=== PATIENT | female | born 1995 | race Caucasian/White ===

== ENCOUNTER → 2016-11-08 | Outpatient (CLI) | payer OTHER ==
--- NOTE | 2016-11-08 12:57 | REP ---
LEFT WRIST, FOUR VIEWS: HISTORY: Sprain. There is no acute fracture or dislocation. The joint spaces are normal in appearance. IMPRESSION: There is on acute fracture or dislocation. Signed by Colby García MD 11/08/2016 01:29 P
--- NOTE | 2016-11-08 13:01 | REP ---
LEFT ELBOW, FOUR VIEWS: HISTORY: Sprain. There is no acute fracture or dislocation. The joint space is normal in appearance. IMPRESSION: There is no acute fracture or dislocation. Signed by Colby García MD 11/08/2016 01:29 P
== END ==
LOC: M WUC 09:08
PROVIDERS: ATTEND Physician Assistant
DX: S53.402A Unspecified sprain of left elbow, initial encounter (principal); S63.512A Sprain of carpal joint of left wrist, initial encounter; X58.XXXA Exposure to other specified factors, initial encounter; Y92.89 Other specified places as the place of occurrence of the external cause; Y93.89 Activity, other specified; Y99.8 Other external cause status

== ENCOUNTER → 2017-01-16 | Outpatient (CLI) | payer OTHER, MEDICAID ==
--- NOTE | 2017-01-16 14:08 | REP ---
OB ULTRASOUND: Real-time sonographic evaluation of the gravid uterus is performed. There is a single living intrauterine gestation. The estimated gestational age is 24 weeks 3 days, EDC 05/05/2017. Today's measurements indicate appropriate growth. Biometry and Growth: BPD 59 mm = 24 weeks 1 day, 44th percentile HC 219 mm = 24 weeks 0 days, 36th percentile AC 214 mm = 25 weeks 6 days, 81st percentile FL 44 mm = 24 weeks 3 days, 51st percentile HC/AC ratio 1.02 within normal range. Estimated weight 770 grams 64th percentile. SEEN/GROSSLY UNREMARKABLE Lateral ventricles Yes Posterior fossa Yes Upper lip Yes Four-chamber heart Yes LVOT Yes RVOT Yes Stomach Yes Cord insertion Yes Three vessel cord No Kidneys Yes Bladder Yes Spine No Cervical length: Closed and measures 2.7 cm in length. heart rate: 163 beats per minute. position: Breech. Placenta: Anterior and fundal and grade 0 with no previa or abruptions. Amniotic fluid: Within normal limits. Signed by German Tsang MD 01/16/2017 04:57 P
[2017-01-16 14:09] LABS: BASO % 0.1 % (0.0-1.0); EOS # 0.1 K/mm3 (0.0-0.50); EOS % 1.1 % (0.0-3.0); LARGE UNSTAINED CELL # 0.1 K/mm3 (0.0-0.4); LARGE UNSTAINED CELL % 1.1 % (0.0-4.0); LYMPH # 1.1 K/mm3 (1.5-6.5); LYMPH % 14.4 % (24.0-44.0); MEAN CORPUSCULAR HEMOGLOBIN 32.6 pg (27.0-33.0); MEAN CORPUSCULAR HGB CONC 34.1 g/dl (32.0-36.5); MEAN CORPUSCULAR VOLUME 95.6 fl (80.0-96.0); MONO # 0.5 K/mm3 (0.0-0.8); MONO % 7.4 % (0.0-5.0); NEUTROPHILS # 5.4 K/mm3 (1.8-7.7); NEUTROPHILS % 75.9 % (36.0-66.0); PLATELET COUNT, AUTOMATED 226 k/mm3 (150-450); RED CELL DISTRIBUTION WIDTH 13.2 % (11.5-14.5); WHITE BLOOD COUNT 7.1 K/mm3 (4.0-10.0)
[2017-01-16 14:25] LABS: HBsAg Prenatal NEGATIVE (NEGATIVE)
== END ==
LOC: M RAD 12:11
PROVIDERS: ATTEND Advanced Practice Midwife
DX: Z34.82 Encounter for supervision of other normal pregnancy, second trimester (principal)

== ENCOUNTER → 2017-01-31 | Outpatient (CLI) | payer OTHER, MEDICAID ==
--- NOTE | 2017-01-31 15:14 | REP ---
Clinical: Anatomical re-evaluation. Comparison: 01/16/2017 . Findings: Examination demonstrates a single live intrauterine in breech presentation. motion is identified by technologist. Placenta is noted posteriorly and grade I without evidence for placenta previa or abruption. Amniotic fluid volume is normal. Cervix measures 3.6 cm in length and appears closed. No evidence for nuchal cord. Gestational age by LMP 26 weeks 4 days with JERRI 05/05/2017 . Gestational age by current measurements 26 weeks 1 day with JERRI 05/08/2017 . FHR equals 141 beats per minute. Estimated weight 962 grams ( 43rd percentile). Anatomical assessment demonstrates normal structures including cranium, choroid plexus, cavum, cerebellum/posterior fossa, facial features, lungs, four-chamber heart/ventricular outflow tracts, diaphragm, stomach, cord insertion/three-vessel cord, kidneys/bladder, and extremities. Evaluation of the lower lumbar/sacral spine is again limited due to continued breech presentation. Impression: Single live intrauterine in breech presentation demonstrating appropriate interval growth. With the exception of the lumbosacral spine, anatomical assessment is complete and normal. Signed by Rigo Olivia MD 01/31/2017 03:06 P
== END ==
LOC: M RAD 14:16
PROVIDERS: ATTEND Advanced Practice Midwife
DX: Z34.82 Encounter for supervision of other normal pregnancy, second trimester (principal)

== ENCOUNTER → 2017-02-08 | Outpatient (CLI) | payer OTHER, MEDICAID ==
[2017-02-08 16:45] LABS: BASO % 0.1 % (0.0-1.0); EOS % 0.8 % (0.0-3.0); LARGE UNSTAINED CELL # 0.1 K/mm3 (0.0-0.4); LARGE UNSTAINED CELL % 0.9 % (0.0-4.0); LYMPH # 0.9 K/mm3 (1.5-6.5); LYMPH % 14.8 % (24.0-44.0); MEAN CORPUSCULAR HEMOGLOBIN 32.5 pg (27.0-33.0); MEAN CORPUSCULAR VOLUME 95.9 fl (80.0-96.0); MONO # 0.4 K/mm3 (0.0-0.8); NEUTROPHILS # 4.5 K/mm3 (1.8-7.7); NEUTROPHILS % 76.4 % (36.0-66.0); PLATELET COUNT, AUTOMATED 208 k/mm3 (150-450); RED CELL DISTRIBUTION WIDTH 13.2 % (11.5-14.5); WHITE BLOOD COUNT 5.9 K/mm3 (4.0-10.0)
[2017-02-08 17:05] LABS: ADD MORPHOLOGY? NO
== END ==
LOC: M LAB 14:05
PROVIDERS: ATTEND Advanced Practice Midwife
DX: Z34.82 Encounter for supervision of other normal pregnancy, second trimester (principal)

== ENCOUNTER → 2017-04-04 | Outpatient (REF) | payer OTHER, MEDICARE | LOC: M LAB REF 16:56 | PROVIDERS: ATTEND Specialist | DX: Z34.83 Encounter for supervision of other normal pregnancy, third trimester (principal) ==

== ENCOUNTER 2017-05-06 03:49 | Inpatient (IN) | payer OTHER, MEDICARE ==
[~2017-05-06] VITALS: Ht 175.3 cm; Wt 76.0 kg
[2017-05-06] VITALS (24 sets, daily range): BP systolic 106–135; BP diastolic 55–91
[2017-05-06] MEDS ORDERED: PRENTAB9 PO (04:07)
[2017-05-06] MEDS ORDERED: FERR325T3 PO (04:07)
[2017-05-06] MEDS ORDERED: PENICILLIN G POTASSIUM IV 5 MU in D5W MINI-BAG PLUS 100 ML IV STA (04:40)
[2017-05-06] MEDS ORDERED: LACTATED RINGER'S 1000 ML IV STA (04:40)
[2017-05-06 04:54] LABS: MEAN CORPUSCULAR HEMOGLOBIN 32.2 pg (27.0-33.0); MEAN CORPUSCULAR HGB CONC 34.6 g/dl (32.0-36.5); MEAN CORPUSCULAR VOLUME 93.1 fl (80.0-96.0); PLATELET COUNT, AUTOMATED 189 10^3/uL (150-450); RED CELL DISTRIBUTION WIDTH 12.9 % (11.5-14.5); WHITE BLOOD COUNT 7.9 10^3/uL (4.0-10.0)
--- NOTE | 2017-05-06 05:00 | HPEPDOC ---
[facility] Medical History & Physical Date of Admission May 06, 2017 Other Provider Jason Attending Physician: Cheryl Rizzo CNM History and Physical HISTORY & PHYSICAL EXAMINATION DATE OF ADMISSION: 05/06/2017 21-year-old, 1, para 0, at 40-1/7 weeks gestation by mid trimester sonogram on 01/16/2017 for an estimated date of delivery of 05/05/2017 presents with complaints of contractions starting around of 10 PM. Upon evaluation, she is 7 cm, 100 % effaced, 0 station. She reports active movement. Reports bloody show .Denies loss of fluid . Sono at 24 weeks 3 days confirmed her due date. Prepregnancy weight was 130. Total weight gain 35 pounds. She has been normotensive through the . Last office visit was at 39 weeks 4 days on 05/02/2017. has been uncomplicated with with the exception of late entry to care. Anatomy scan within normal limits. OB HISTORY: 1 ALLERGIES: None. MEDICAL/SURGICAL HISTORY: Dental and elbow surgery FAMILY HISTORY: Cancer, hypertension and thyroid disease. SOCIAL HISTORY: Single. Father of the baby is present and supportive. Denies tobacco, alcohol or drugs. No history of sexually transmitted infections OBJECTIVE: Labs are B+, antibody negative. Initial hemoglobin and hematocrit 10.1 and 29.6 with platelets of 226. Rubella immune. VDRL, hepatitis B, hepatitis C, HIV, gonorrhea, chlamydia all negative. Genetic screening was not done due to late entry to care. 1 hour GCT 116. Group B strep is positive. Sensitivities were done. VITAL SIGNS: Stable. She is in moderate distress, breathing with contractions. Abdomen is soft, gravid, nontender, longitudinal lie, vertex by Fer. Contractions 2-4 minutes apart, 60 seconds, moderate to palpation. heart 150, moderate variability with accelerations, category 1 tracing. Sterile vaginal exam: 7 cm, 100 % effaced, 0 station, intact membranes and cephalic. ASSESSMENT: 21-year-old, 1, at 40 weeks 1 days gestation, in active labor, category 1 tracing. PLAN: Admit per consultation Dr. Gomez, who is aware of patient's status. Group B strep prophylaxis ordered. She is undecided about an epidural .Anticipate normal spontaneous vaginal . Home Medications Scheduled Ferrous Sulfate (Ferrous Sulfate) 325 Mg Tab, 325 MG PO DAILY Multivitamins/ ( 27-0.8 mg) 1 Tab Tab, 1 TAB PO DAILY Allergies Coded Allergies: No Known Allergies (Unverified , 05/06/17) Cheryl Rizzo CNM May 06, 2017 05:00
[2017-05-06] MEDS ORDERED: FENTANYL 2MCG/ML ROPIVACAINE 0.2% IN 0.9% NACL 200ML IVBAG As Ordered ONE (05:23)
[2017-05-06] MEDS ORDERED: OXYTOCIN 30 UNITS IN 0.9% NaCl 500ML IV BAG (J2590) As Ordered ONE (06:25)
[2017-05-06] MEDS ORDERED: REFRIGERATOR IV KEYS XX PRN (07:00)
[2017-05-06] MEDS ORDERED: diphenhydrAMINE INJ 50MG/ML VIAL (J1200) IV PRN (07:00)
[2017-05-06] MEDS ORDERED: NALOXONE INJ 0.4 MG/1 ML VIAL (J2310) IV PRN (07:00)
[2017-05-06] MEDS ORDERED: FENTANYL/ROPIVACAINE/NACL BAG 200 ML EPIDURAL SCH (07:00)
[2017-05-06] MEDS ORDERED: EPIDURAL/PCA KEYS XX PRN (07:00)
[2017-05-06] MEDS ORDERED: ePHEDrine SULFATE 25 MG/5 ML(5MG/ML) SYRINGE IV PRN (07:00)
[2017-05-06] MEDS ORDERED: ONDANSETRON 4MG/2ML VIAL (J2405) IV PRN (07:00)
[2017-05-06] MEDS ORDERED: EPIDURAL COMMENT XX SCH (07:00)
[2017-05-06] MEDS ORDERED: ALBUTEROL 90 MCG/ACT 8GM HFA INHALER INH PRN (08:00)
[2017-05-06] MEDS ORDERED: OXYTOCIN DRIP 30 UNITS in APPROPRIATE DILUENT 1 EA IV SCH (08:33)
--- NOTE | 2017-05-06 08:44 | DNPDOC ---
[facility] Delivery Note Delivery Note DATE OF DELIVERY: 05/06/2017 PREDELIVERY DIAGNOSIS: 40-1/7 weeks' gestation and labor. POST DELIVERY DIAGNOSIS: Delivered. PROCEDURE: Spontaneous vaginal delivery. ELECTRIC REPAIR SUPERVISOR: Cheryl Rizzo ANESTHESIA: Epidural. ESTIMATED BLOOD LOSS: 100 mL. FINDINGS: 8 pound 4 ounce, 3750 g male , Score 9/9, no nuchal cord. DELIVERY SUMMARY: Patient is a 21-year-old 1 now para 1 -0 -0-1 who was admitted to labor and delivery for active labor on 05/06/2017. She utilized an epidural for labor coping. Fully dilated at 0700, artificial rupture of membranes at that time for moderate amount clear fluid. Pitocin augmentation of second stage for maternal fatigue was performed. Viable male delivered SALOME compound with left posterior arm at 0814. Spontaneous respirations. Transitioned on maternal abdomen. Cord doubly Clamped and cut by father of the baby under my direction once pulsations ceased. Placenta delivered Vargas intact with a three-vessel cord at 0819. Fundus firmed with massage and IV Pitocin bolus. Estimated blood loss 100 mL., Cervix, vagina and perineum were inspected, found to have bilateral labial abrasions and a small posterior vaginal abrasion. Interrupted suture of 3-0 Vicryl Rapide provided good hemostasis. Infant weight 3750 g, 8 lbs. 4 oz. Sponge, sharp and instrument count were correct at the close of the procedure Cheryl Rizzo CNM May 06, 2017 08:44
[2017-05-06] MEDS ORDERED: MOM 30ML SUSPENSION UDC PO PRN (08:45)
[2017-05-06] MEDS ORDERED: DOCUSATE SODIUM 100 MG CAP PO PRN (08:45)
[2017-05-06] MEDS ORDERED: RHOGAM 300 MCG (1500 IU) INJ (J2790) IM SCH (08:45)
[2017-05-06] MEDS ORDERED: MEASLES,MUMPS,RUBELLA VACCINE INJ (MMR-II) (90707) SC SCH (08:45)
[2017-05-06] MEDS ORDERED: METHYLERGONOVINE MALEATE 0.2 MG TAB PO PRN (08:45)
[2017-05-06] MEDS ORDERED: DIBUCAINE 1% OINTMENT 30GM TOP PRN (08:45)
[2017-05-06] MEDS ORDERED: ANUSOL HC CREAM 30GM TOP PRN (08:45)
[2017-05-06] MEDS ORDERED: PENICILLIN G POTASSIUM IV 2.5 MU in APPROPRIATE DILUENT 1 EA IV SCH (09:00)
[2017-05-06] MEDS: IBUPROFEN 800 MG TAB PO PRN ×2 (11:20→20:56)
[2017-05-06] MEDS: FERROUS SULFATE 325MG TAB PO SCH (11:20)
[2017-05-06] MEDS: PRENATAL VITAMINS CHEWABLE TABLET PO SCH (11:20)
[2017-05-06] MEDS: guaiFENesin DM LIQ 10ML UD PO PRN ×2 (12:47→23:38)
[2017-05-06] MEDS: ACETAMINOPHEN 500 MG TAB PO PRN (16:06)
[2017-05-07 06:21] VITALS: BP 115/56
[2017-05-07] MEDS: IBUPROFEN 800 MG TAB PO PRN ×2 (06:52→16:01)
[2017-05-07] MEDS: FERROUS SULFATE 325MG TAB PO SCH (08:37)
[2017-05-07] MEDS: PRENATAL VITAMINS CHEWABLE TABLET PO SCH (08:37)
[2017-05-07 18:00] VITALS: BP 117/75
[2017-05-07] MEDS: guaiFENesin DM LIQ 10ML UD PO PRN ×2 (18:31→23:29)
[2017-05-08] MEDS: ACETAMINOPHEN 500 MG TAB PO PRN (02:29)
[2017-05-08 06:00] VITALS: BP 110/65
[2017-05-08] MEDS: PRENATAL VITAMINS CHEWABLE TABLET PO SCH (09:00)
[2017-05-08] MEDS: FERROUS SULFATE 325MG TAB PO SCH (09:00)
[2017-05-08] MEDS: IBUPROFEN 800 MG TAB PO PRN (10:43)
[2017-05-08] MEDS ORDERED: ACET50TA PO (10:56)
[2017-05-08] MEDS ORDERED: IBUP-1114 PO (10:57)
== END 2017-05-08 12:50 | disposition home or self-care (01) | DRG 775 ==
LOC: M LDO 03:49 → M LDI 04:43 → M OBS 11:00
PROVIDERS: ADMIT Advanced Practice Midwife; ATTEND Advanced Practice Midwife
PROC: 10E0XZZ Delivery of Products of Conception, External Approach (ICD-10-PCS; principal; 2017-05-06)
DX: O48.0 Post-term pregnancy (principal); Z37.0 Single live birth; Z3A.40 40 weeks gestation of pregnancy; O32.6XX0 Maternal care for compound presentation, not applicable or unspecified; O09.30 Supervision of pregnancy with insufficient antenatal care, unspecified trimester

== ENCOUNTER → 2017-09-19 | Outpatient (CLI) | payer MEDICAID, OTHER, MEDICARE ==
[2017-09-19 13:00] LABS: TOTAL 25(OH) VITAMIN D 11.1 NG/ML (30.0-100.0)
[2017-09-20 12:30] LABS: HIV 1&2 SCREEN CENTAUR NEGATIVE (NEGATIVE)
== END ==
LOC: M LAB 11:35
DX: Z13.29 Encounter for screening for other suspected endocrine disorder (principal); Z11.3 Encounter for screening for infections with a predominantly sexual mode of transmission
CPT/HCPCS: 84443

== ENCOUNTER → 2017-11-19 | Outpatient (CLI) | payer OTHER ==
[2017-11-20 00:16] LABS: TOTAL 25(OH) VITAMIN D 48.8 NG/ML (30.0-100.0)
== END ==
LOC: M LAB 16:20
DX: E55.9 Vitamin D deficiency, unspecified (principal)
CPT/HCPCS: 82306

== ENCOUNTER → 2018-05-05 | Outpatient (REF) | payer OTHER ==
[2018-05-14 00:06] LABS: HPV HYBRID CAPTURE II Negative (Negative)
== END ==
LOC: M LAB REF 12:59
DX: Z01.419 Encounter for gynecological examination (general) (routine) without abnormal findings (principal); Z12.4 Encounter for screening for malignant neoplasm of cervix

== ENCOUNTER → 2018-08-02 | Outpatient (REF) | payer OTHER ==
[~2018-08-02] MED LIST: FERR325T3 PO; IBUP-1114 PO; MAPA500T2 PO; PRENTAB9 PO
== END ==
LOC: M LAB REF 11:35
PROVIDERS: ATTEND Physician Assistant
DX: J02.9 Acute pharyngitis, unspecified (principal); J06.9 Acute upper respiratory infection, unspecified

== ENCOUNTER → 2019-02-16 | Outpatient (CLI) | payer OTHER, BC ==
[2019-02-16 08:10] LABS: HEMATOCRIT 33.9 % (36.0-47.0); HEMOGLOBIN 11.7 g/dl (12.0-15.5); MEAN CORPUSCULAR HEMOGLOBIN 29.9 pg (27.0-33.0); MEAN CORPUSCULAR HGB CONC 34.5 g/dl (32.0-36.5); MEAN CORPUSCULAR VOLUME 86.7 fl (80.0-96.0); PLATELET COUNT, AUTOMATED 272 10^3/uL (150-450); RED BLOOD COUNT 3.91 10^6/uL (4.00-5.40); WHITE BLOOD COUNT 6.5 10^3/uL (4.0-10.0)
== END ==
LOC: M LAB 07:26
PROVIDERS: ATTEND Specialist
DX: N93.8 Other specified abnormal uterine and vaginal bleeding (principal)

== ENCOUNTER → 2019-06-30 | Outpatient (REF) | payer OTHER | LOC: M SFHCWAGY 19:56 | PROVIDERS: ATTEND Specialist | DX: Z12.4 Encounter for screening for malignant neoplasm of cervix (principal); R10.2 Pelvic and perineal pain ==

== ENCOUNTER → 2019-08-04 | Outpatient (REF) | payer OTHER ==
[2019-08-04 11:56] LABS: HEMATOCRIT 36.4 % (36.0-47.0); HEMOGLOBIN 12.2 g/dl (12.0-15.5); MEAN CORPUSCULAR HGB CONC 33.5 g/dl (32.0-36.5); MEAN CORPUSCULAR VOLUME 89.4 fl (80.0-96.0); PLATELET COUNT, AUTOMATED 284 10^3/uL (150-450); RED BLOOD COUNT 4.07 10^6/uL (4.00-5.40); WHITE BLOOD COUNT 7.8 10^3/uL (4.0-10.0)
[2019-08-04 13:44] LABS: CHLAMYDIA DNA AMPLIFICATION NEGATIVE (NEGATIVE); GC DNA AMPLIFICATION NEGATIVE (NEGATIVE)
[2019-08-05 11:08] LABS: HEPATITIS B SURFACE ANTIGEN NEGATIVE (NEGATIVE); HEPATITIS C VIRUS ABY INDEX < 0.0 INDEX (<0.8); HIV 1&2 SCREEN CENTAUR NEGATIVE (NEGATIVE); RUBELLA IgG QUALITATIVE IMMUNE (IMMUNE)
== END ==
LOC: M PLALAB 10:17
PROVIDERS: ATTEND Obstetrics & Gynecology
DX: Z34.91 Encounter for supervision of normal pregnancy, unspecified, first trimester (principal)

== ENCOUNTER → 2019-10-22 | Outpatient (CLI) | payer OTHER, BC ==
--- NOTE | 2019-10-22 19:37 | REP ---
Clinical: Anatomical evaluation. Comparison: None . Findings: Examination demonstrates a single live intrauterine in variable presentation. motion is identified by technologist. Placenta is noted posterior and grade I without evidence for placenta previa or abruption. Amniotic fluid volume is normal. Cervix measures 3.3 cm in length and appears closed. No evidence for nuchal cord. Gestational age by LMP 20 weeks 6-day with JERRI 03/04/2020 . Gestational age by current measurements 19 weeks 4 days with JERRI 03/13/2020 . FHR equals 155 beats per minute. Estimated weight 318 grams ( 15th percentile). Anatomical assessment demonstrates normal structures including cranium, choroid plexus, cavum, cerebellum/posterior fossa, facial features, lungs, diaphragm, stomach, cord insertion/three-vessel cord, kidneys/bladder, spine, and extremities. Impression: Single live intrauterine in variable presentation demonstrating appropriate estimated weight and growth. Limited evaluation of the heart/ventricular outflow tracts noted. Remainder of the anatomical assessment is complete and normal.
== END ==
LOC: M WHC 10:58
PROVIDERS: ATTEND Advanced Practice Midwife
DX: Z36.89 Encounter for other specified antenatal screening (principal); Z3A.20 20 weeks gestation of pregnancy

== ENCOUNTER → 2019-11-17 | Outpatient (CLI) | payer OTHER, BC ==
--- NOTE | 2019-11-18 03:31 | REP ---
OB ULTRASOUND: Real-time sonographic evaluation of gravid uterus performed. There is a single living intrauterine gestation. Estimated gestational age is 24 weeks 4 days, EDC 03/04/2020. Today's measurements indicate appropriate growth. BPD 58 mm = 23 weeks 6 days, 32nd percentile HC 211 mm = 23 weeks 1 day, 6th percentile AC 199 mm = 24 weeks 4 days, 50th percentile Femur length 42 mm = 23 weeks 4 days, 26th percentile HC/AC ratio 1.06, within normal range of 1.02 to 1.21. Estimated weight 657 grams, 29th percentile. Cervical length: Cervix is closed and measures 3.8 cm in length. heart rate: 152 beats per minute. SEEN/GROSSLY UNREMARKABLE Lateral ventricles No Posterior fossa No Upper lip No Four-chamber heart Yes LVOT Yes RVOT Yes Stomach Yes Cord insertion Yes Three vessel cord Yes Kidneys Yes Bladder Yes Spine No position: Vertex. Placenta: Posterior and grade 1 with no previa or abruption. Amniotic fluid: Within normal limits.
== END ==
LOC: M WHC 14:19
PROVIDERS: ATTEND Advanced Practice Midwife
DX: Z34.82 Encounter for supervision of other normal pregnancy, second trimester (principal); Z36.2 Encounter for other antenatal screening follow-up; Z3A.24 24 weeks gestation of pregnancy

== ENCOUNTER → 2019-12-29 | Outpatient (CLI) | payer OTHER, BC ==
[~2019-12-29] MED LIST changes: +ACET-683 PO; +IBUP80TA PO; +LEVOTAB10 PO
== END ==
LOC: M RAD 07:30
PROVIDERS: ATTEND Advanced Practice Midwife
DX: O99.89 Other specified diseases and conditions complicating pregnancy, childbirth and the puerperium (principal); O26.899 Other specified pregnancy related conditions, unspecified trimester; R20.0 Anesthesia of skin; M51.36 Other intervertebral disc degeneration, lumbar region; M51.37 Other intervertebral disc degeneration, lumbosacral region; M51.45 Schmorl's nodes, thoracolumbar region; M51.26 Other intervertebral disc displacement, lumbar region; M51.27 Other intervertebral disc displacement, lumbosacral region

== ENCOUNTER → 2020-02-02 | Outpatient (REF) | payer OTHER | LOC: M LAB REF 19:10 | PROVIDERS: ATTEND Specialist | DX: Z34.83 Encounter for supervision of other normal pregnancy, third trimester (principal); Z3A.00 Weeks of gestation of pregnancy not specified ==

== ENCOUNTER → 2020-02-16 | Outpatient (CLI) | payer OTHER ==
[2020-02-16 17:23] LABS: HEMATOCRIT 36.9 % (36.0-47.0); HEMOGLOBIN 11.8 g/dl (12.0-15.5); MEAN CORPUSCULAR HEMOGLOBIN 30.3 pg (27.0-33.0); MEAN CORPUSCULAR VOLUME 94.6 fl (80.0-96.0); PLATELET COUNT, AUTOMATED 207 10^3/uL (150-450); WHITE BLOOD COUNT 7.9 10^3/uL (4.0-10.0)
[2020-02-16 17:55] LABS: ALBUMIN 2.6 GM/DL (3.2-5.2); BILIRUBIN,DIRECT 0.1 MG/DL (0.0-0.2); BILIRUBIN,TOTAL 0.8 MG/DL (0.2-1.0); TOTAL PROTEIN 6.4 GM/DL (6.4-8.2); URIC ACID 3.6 MG/DL (2.6-6.0)
== END ==
LOC: M PLALAB 15:09
PROVIDERS: ATTEND Advanced Practice Midwife
DX: O99.89 Other specified diseases and conditions complicating pregnancy, childbirth and the puerperium (principal); Z3A.37 37 weeks gestation of pregnancy; R51 Headache

== ENCOUNTER 2020-03-04 07:43 | Inpatient (IN) | payer OTHER, BC ==
[~2020-03-04] VITALS: Ht 172.7 cm; Wt 82.5 kg
[2020-03-04] VITALS (30 sets, daily range): BP systolic 95–149; BP diastolic 52–89
[~2020-03-04 07:43] MED LIST changes: -ACET-683 PO; -IBUP80TA PO; -LEVOTAB10 PO
[2020-03-04] MEDS ORDERED: miSOPROStol 50 MCG 1/2 TAB (S0191) PO ONE (10:30)
[2020-03-04] MEDS ORDERED: LEVOTAB10 PO (10:55)
[2020-03-04 11:03] LABS: MEAN CORPUSCULAR HEMOGLOBIN 30.5 pg (27.0-33.0); MEAN CORPUSCULAR HGB CONC 33.3 g/dl (32.0-36.5); MEAN CORPUSCULAR VOLUME 91.4 fl (80.0-96.0); PLATELET COUNT, AUTOMATED 213 10^3/uL (150-450); RED BLOOD COUNT 3.61 10^6/uL (4.00-5.40)
[2020-03-04] MEDS ORDERED: LR 1,000 ML IV SCH (15:10)
[2020-03-04] MEDS ORDERED: OXYTOCIN DRIP 30 UNITS in IV 1 EA IV SCH ×2 (15:15→20:51)
[2020-03-04] MEDS ORDERED: FENTANYL 2MCG/ML ROPIVACAINE 0.2% IN 0.9% NACL 100ML IVBAG As Ordered ONE (19:10)
[2020-03-04] MEDS ORDERED: EPIDURAL COMMENT XX SCH (19:30)
[2020-03-04] MEDS ORDERED: EPIDURAL/PCA KEYS XX PRN (19:30)
[2020-03-04] MEDS ORDERED: diphenhydrAMINE 50MG/ML VIAL (J1200) IV PRN (19:30)
[2020-03-04] MEDS ORDERED: LACTATED RINGER'S 1000 ML IV PRN (19:30)
[2020-03-04] MEDS ORDERED: ONDANSETRON 4MG/2ML VIAL IV PRN (19:30)
[2020-03-04] MEDS ORDERED: ePHEDrine SULFATE 25 MG/5 ML(5MG/ML) SYRINGE IV PRN (19:30)
[2020-03-04] MEDS ORDERED: FENTANYL/ROPIVACAINE/NACL BAG 100 ML EPIDURAL SCH (19:30)
[2020-03-04] MEDS ORDERED: REFRIGERATOR IV KEYS XX PRN (19:30)
[2020-03-04] MEDS ORDERED: NALOXONE INJ 0.4MG/1ML VIAL (J2310 PER 1MG) IV PRN (19:30)
[2020-03-04] MEDS ORDERED: DIBUCAINE 1% OINTMENT 30GM TOP PRN (21:00)
[2020-03-04] MEDS ORDERED: METHYLERGONOVINE MALEATE 0.2 MG TAB PO PRN (21:00)
[2020-03-04] MEDS ORDERED: DOCUSATE SODIUM 100 MG CAP PO PRN (21:00)
[2020-03-04] MEDS ORDERED: RHOGAM 300 MCG (1500 IU) INJ (J2790) IM SCH (21:00)
[2020-03-04] MEDS ORDERED: MEASLES,MUMPS,RUBELLA VACCINE INJ (MMR-II) (90707) SC SCH (21:00)
[2020-03-04] MEDS ORDERED: ACETAMINOPHEN TAB 650MG DOSE (2X325MG) PO PRN (21:00)
[2020-03-04] MEDS ORDERED: IBUPROFEN 600MG TAB PO PRN (21:00)
--- NOTE | 2020-03-04 21:08 | DNPDOC ---
[facility] Delivery Note Delivery Note DATE OF DELIVERY: 03/04/2020 PREDELIVERY DIAGNOSIS: 40-0/7 weeks' gestation and labor. POST DELIVERY DIAGNOSIS: Delivered. PROCEDURE: Spontaneous vaginal delivery. CERTIFIED NURSE-PROFESSOR OF RADIOLOGY: Pippa Bell CNM ANESTHESIA: Epidural. ESTIMATED BLOOD LOSS: 300 mL. FINDINGS: 7 pound 9 ounce, 3440 gram male infant, Score 9/9, no nuchal cord. DELIVERY SUMMARY: Patient is a 24-year-old 2 now para 2-0-0-2 who was admitted to labor and delivery for IOL at 40 0/7 weeks. She received an epidural to cope with her labor. Progressed to complete dilation at 2014 and pushed to an at 2025 of a live male infant in OA position with restitution to LOT with a compound right hand. No nuchal cord was noted. Shoulders delivered spontaneously and the corpus immediately followed. was placed on the maternal abdomen, crying and active, mouth and nose bulb suctioned. Cord was clamped x2 and cut by the father of the baby under my direction. Placenta delivered spontaneously and intact by Vargas mechanism with a 3 vessel cord at 2035. Uterine hemostasis was achieved with rapid infusion IV pitocin and uterine fundal massage. Perineal and vaginal inspection revealed no lacerations. EBL 300 mL. weighed 3440g, 7 lbs 9 oz and had apgars of 9/9. The patient is bottle feeding and has named her baby Yogesh. At the close of delivery all lap counts and instrument counts were correct and verified. JORDYN BELL CNM Mar 04, 2020 21:08
[2020-03-05] MEDS: IBUPROFEN 800 MG TAB PO PRN ×2 (00:25→16:11)
[2020-03-05] MEDS: ACETAMINOPHEN 500 MG TAB PO PRN ×2 (05:39→11:13)
[2020-03-05 06:00] VITALS: BP 111/66
--- NOTE | 2020-03-05 06:57 | IPNPDOC ---
Progress Note Date of Service: Mar 05, 2020 Day#: 1 Progress Note SUBJECT: Pt denies complaints. Doing well day #1. She has been ambu lating, voiding without difficulty and tolerating regular diet. She is bottle feeding. OBJECTIVE: VITAL SIGNS: T 97.4F P 77 RR 17 BP 111/66 Alert and oriented x3. Breasts soft and non-tender, nipples intact. Fundus firm at U-2. Small lochia rubra. Perineum intact, no edema. ASSESSMENT: at term, PPD #1 PLAN: Continue routine post care. JORDYN BELL CNM Mar 05, 2020 06:57
[2020-03-05] MEDS: PRENATAL VITAMINS CHEWABLE TABLET PO SCH (10:18)
[2020-03-05 18:00] VITALS: BP 109/68
[2020-03-06] MEDS: IBUPROFEN 800 MG TAB PO PRN ×2 (00:31→09:37)
[2020-03-06] MEDS: ACETAMINOPHEN 500 MG TAB PO PRN (05:39)
[2020-03-06 06:04] VITALS: BP_SYST 119; BP_SYST 151; BP_SYST 170; BP_DIAS 73; BP_DIAS 81
[2020-03-06] MEDS ORDERED: ACET-683 PO (08:28)
[2020-03-06] MEDS ORDERED: IBUP80TA PO (08:28)
[2020-03-06] MEDS: PRENATAL VITAMINS CHEWABLE TABLET PO SCH (09:37)
== END 2020-03-06 11:00 | disposition home or self-care (01) | DRG 807 ==
LOC: M LDO 07:43 → M LDI 10:28 → M OBS 23:04
PROVIDERS: ADMIT Advanced Practice Midwife; ATTEND Advanced Practice Midwife
PROC: 10E0XZZ Delivery of Products of Conception, External Approach (ICD-10-PCS; principal; 2020-03-04)
PROC: 3E0DXGC Introduction of Other Therapeutic Substance into Mouth and Pharynx, External Approach (ICD-10-PCS; 2020-03-04)
DX: O48.0 Post-term pregnancy (principal); Z37.0 Single live birth; Z3A.40 40 weeks gestation of pregnancy

== ENCOUNTER → 2020-06-24 | Outpatient (REF) | payer OTHER ==
[~2020-06-24] MED LIST changes: +ACET-683 PO; +IBUP80TA PO; +LEVOTAB10 PO
[2020-06-24 13:41] LABS: HEMATOCRIT 37.8 % (36.0-47.0); HEMOGLOBIN 12.4 g/dl (12.0-15.5); MEAN CORPUSCULAR HEMOGLOBIN 29.2 pg (27.0-33.0); MEAN CORPUSCULAR HGB CONC 32.8 g/dl (32.0-36.5); MEAN CORPUSCULAR VOLUME 88.9 fl (80.0-96.0); PLATELET COUNT, AUTOMATED 291 10^3/uL (150-450); RED BLOOD COUNT 4.25 10^6/uL (4.00-5.40); WHITE BLOOD COUNT 5.9 10^3/uL (4.0-10.0)
== END ==
LOC: M PLALAB 10:42
PROVIDERS: ATTEND Advanced Practice Midwife
DX: R63.5 Abnormal weight gain (principal); F32.9 Major depressive disorder, single episode, unspecified; E01.0 Iodine-deficiency related diffuse (endemic) goiter; Z12.4 Encounter for screening for malignant neoplasm of cervix
CPT/HCPCS: 36415; 84443; 85027; G0123

== ENCOUNTER → 2020-11-09 | Outpatient (CLI) | payer OTHER, BC | LOC: M LABSMTC 09:37 | PROVIDERS: ATTEND Student in an Organized Health Care Education/Training Program | DX: Z20.828 Contact with and (suspected) exposure to other viral communicable diseases (principal); Z11.59 Encounter for screening for other viral diseases ==

== ENCOUNTER → 2021-03-29 | Outpatient (REF) | payer OTHER | LOC: M WUC 19:48 | PROVIDERS: ATTEND Physician Assistant | DX: J06.9 Acute upper respiratory infection, unspecified (principal); Z20.828 Contact with and (suspected) exposure to other viral communicable diseases ==

== ENCOUNTER 2021-03-30 17:05 | Emergency (ER) | payer OTHER, BC ==
[~2021-03-30] VITALS: Ht 172.7 cm; Wt 74.9 kg
[~2021-03-30 17:05] MED LIST changes: -KETO10TAB PO
[2021-03-31 03:02] VITALS: BP 116/72
[2021-03-31] MEDS ORDERED: NS 1,000 ML IV ONE (05:15)
[2021-03-31] MEDS ORDERED: KETOROLAC 30 MG/ML 1ML VIAL IV ONE (05:15)
[2021-03-31 05:54] LABS: BASO % 0.2 % (0.0-1.0); EOS % 0.2 % (0.0-3.0); HEMATOCRIT 38.6 % (36.0-47.0); HEMOGLOBIN 12.6 g/dl (12.0-15.5); LYMPH # 1.5 10^3/uL (1.5-5.0); LYMPH % 34.6 % (24.0-44.0); MEAN CORPUSCULAR HEMOGLOBIN 29.4 pg (27.0-33.0); MEAN CORPUSCULAR HGB CONC 32.6 g/dl (32.0-36.5); MONO # 0.6 10^3/uL (0.0-0.8); MONO % 13.5 % (2.0-8.0); NEUTROPHILS # 2.2 10^3/uL (1.5-8.5); NEUTROPHILS % 51.3 % (36.0-66.0); PLATELET COUNT, AUTOMATED 176 10^3/uL (150-450); RED BLOOD COUNT 4.29 10^6/uL (4.00-5.40); WHITE BLOOD COUNT 4.4 10^3/uL (4.0-10.0)
[2021-03-31 06:24] LABS: ALBUMIN 3.8 GM/DL (3.2-5.2); ALT/SGPT 21 U/L (12-78); BILIRUBIN,TOTAL 0.9 MG/DL (0.2-1.0); BLOOD UREA NITROGEN 10 MG/DL (7-18); CALCIUM LEVEL 8.9 MG/DL (8.5-10.1); CARBON DIOXIDE LEVEL 25 MEQ/L (21-32); CHLORIDE LEVEL 104 MEQ/L (98-107); CK-MB VALUE MASS < 1.0 NG/ML (<3.6); CPK CREATINE PHOSPHOKINASE 56 U/L (26-192); CREATININE FOR GFR 0.81 MG/DL (0.55-1.30); GLOMERULAR FILTRATION RATE > 60.0 (>60); GLUCOSE, FASTING 87 MG/DL (70-100); MAGNESIUM LEVEL 2.5 MG/DL (1.8-2.4); MB/CK RELATIVE INDEX 1.79 (< OR =4); POTASSIUM SERUM 3.9 MEQ/L (3.5-5.1); SODIUM LEVEL 139 MEQ/L (136-145); TOTAL PROTEIN 7.6 GM/DL (6.4-8.2); TROPONIN I < 0.02 NG/ML (< 0.10)
--- NOTE | 2021-03-31 06:33 | REPVR ---
PROCEDURE INFORMATION: Exam: CT Abdomen And Pelvis Without Contrast Exam date and time: 03/31/2021 5:15 AM Age: 25 years old Clinical indication: Abdominal pain; Flank; Right; Additional info: Pyelonephritis vs appendicitis TECHNIQUE: Imaging protocol: Computed tomography of the abdomen and pelvis without contrast. Radiation optimization: All CT scans at this facility use at least one of these dose optimization techniques: automated exposure control; mA and/or kV adjustment per patient size (includes targeted exams where dose is matched to clinical indication); or iterative reconstruction. COMPARISON: US PELVIC NON-OB COMPLETE 03/30/2021 2:17 PM FINDINGS: Lungs: The visualized portions of the lung bases are normal. Liver: The unenhanced liver appears unremarkable. Gallbladder and bile ducts: The gallbladder is normal with no stones or biliary ductal dilation. Pancreas: The pancreas appears unremarkable. No pancreatic ductal dilation identified. Spleen: There is a 10 mm round focus of low attenuation in the spleen, of doubtful clinical significance. There is no splenomegaly. Adrenal glands: The adrenal glands are normal. Kidneys and ureters: The unenhanced kidneys appear unremarkable. There is no perinephric stranding. There are no ureteral stones or hydronephrosis. Stomach and bowel: The small bowel appears unremarkable. There is no dilation or thickening of the colon. Appendix: A normal appendix is identified. Intraperitoneal space: There is no evidence of free intraperitoneal or pelvic fluid. There is no free intraperitoneal air. Vasculature: No aortic aneurysm. Lymph nodes: There are a few, mildly enlarged mesenteric lymph nodes. Urinary bladder: The bladder is unremarkable. No stones identified. Reproductive: There is an IUD in the uterus. The uterus is retroverted. Bones/joints: Small Schmorl's nodes are seen in the endplates at multiple levels in the visualized spine. There are bulges of the L4-L5 and L5-S1 discs. No suspicious osseous lesions. No acute fractures. Soft tissues: There is a small periumbilical hernia containing fat. IMPRESSION: 1. Normal appearance of the kidneys. No nephrolithiasis, hydronephrosis, or perinephric stranding. 2. Normal appearance of the appendix. 3. Nonspecific, mildly enlarged mesenteric lymph nodes. 4. Disc bulges noted in the lower lumbar spine. Electronically signed by: Brea Dorado On 03/31/2021 06:32:19 AM
[2021-03-31 09:08] LABS: GC DNA AMPLIFICATION NEGATIVE (NEGATIVE)
[2021-03-31] MEDS ORDERED: KETO10TAB PO (10:22)
--- NOTE | 2021-03-31 20:50 | ECGEPIP ---
[facility] - ED Test Date: 2021-03-31 Pat Name: CECILE WASHINGTON Department: Room: - Gender: Female Hospital Plan Administrator: SUNNY : 1995 Requested By: STEPHANIE Aguirre Order Number: [id number] Reading MD: Delmy Trejo Measurements Intervals [place] Rate: 71 P: 19 IL: 124 QRS: 55 QRSD: 76 T: 32 QT: 388 QTc: 421 Interpretive Statements Normal sinus rhythm No prior Electronically Signed on 03-31-2021 20:50:06 EDT by Delmy Trejo
== END 2021-03-31 10:39 | disposition home or self-care (01) ==
LOC: M ED 17:05
DX: N83.299 Other ovarian cyst, unspecified side (principal); I88.0 Nonspecific mesenteric lymphadenitis; F33.9 Major depressive disorder, recurrent, unspecified
CPT/HCPCS: 74176; 80053; 81001; 82550; 82553; 83735; 84484; 85025; 87210; 87661; 93005; 96374; 99284; J1885

== ENCOUNTER → 2021-03-30 | Outpatient (CLI) | payer OTHER, BC ==
[~2021-03-30] MED LIST changes: +KETO10TAB PO
--- NOTE | 2021-03-30 14:56 | REP ---
INDICATION: FEVER, RECENT IUD, R/O PYELONEPHRITIS, FLANK PAIN. COMPARISON: None. TECHNIQUE: Real-time sonographic evaluation of the kidneys is performed. FINDINGS: Renal cortical echogenicity pattern is normal bilaterally and contours are smooth. There is no evidence of hydronephrosis, cyst, mass, or calculus in either kidney. The right kidney measures 11.5 x 5.6 x 4.2 cm. Left renal dimensions are 11.7 x 5.5 x 6.0 cm. The urinary bladder is unremarkable. Ureteral jets are visualized in the urinary bladder bilaterally with Doppler color evaluation. Incidental note is made of a cyst in the spleen measuring 7 mm. IMPRESSION: Negative renal ultrasound. <Electronically signed by German Tsang > 03/30/21 [id number]
--- NOTE | 2021-03-30 15:07 | REP ---
INDICATION: FEVER, RECENT IUD, R/O PYELONEPHRITIS, FLANK PAIN. COMPARISON: None. TECHNIQUE: Transabdominal and endovaginal probe images were performed. FINDINGS: Bladder measured 5.7 x 5.1 x 8.1 cm. Gas shadowing limited transabdominal exam. Endovaginal probe images show the uterus retroverted measuring 7.5 x 5.1 x 5.6 cm. There is a central endometrial echogenic stripe with a thickness of 6 mm. An IUD is seen of the endometrial cavity in the body and extending toward the lower uterine segment of this retroverted uterus. The right ovary is 3.4 x 2.2 x 4.1 cm normal color flow and Doppler tracing shows resistive index 0.5, normal. No adjacent free fluid or right adnexal mass. The left ovary is 3.2 x 2.2 x 2.8 cm. There is color flow within and Doppler tracing of the left ovary shows resistive index 0.52. Multiple peripheral subcentimeter follicles are noted. In addition there is a 2 x 1.6 x 1.4 cm slightly hypoechoic focus at could be solid or complex/hemorrhagic follicle. The ovary has another 1.9 x 1.8 x 1.4 cm cystic area abutting or arising from it that could be a dominant follicle or parapelvic cyst. There is adjacent complex free fluid in the adnexa. IMPRESSION: 1. Retroverted uterus not enlarged with the IUD in the uterine body extending into the lower uterine segment. 2. Right ovary unremarkable and with normal color flow. 3. Left ovary with normal color flow but with an hypoechoic 2 x 1.6 cm focus that may be solid or complex cyst and another 1.9 x 1.8 x 1.4 cm more anechoic focus abutting or arising from the ovary as dominant follicle or parapelvic cyst. In addition there is a complex free fluid in the adnexa. This may reflect rupture of a hemorrhagic cyst, but with fever, chills and pain consideration for pelvic inflammatory disease is warranted. Meal Miller consultation may be helpful. There is no torsion on either side. Patient also has a pelvic ultrasound report pending this same date. <Electronically signed by Renaldo Gonzalez > 03/30/21 [id number]
== END ==
LOC: M RAD 13:52
PROVIDERS: ATTEND Advanced Practice Midwife
DX: R10.9 Unspecified abdominal pain (principal)

== ENCOUNTER → 2021-05-02 | Outpatient (REF) ==
[~2021-05-02] MED LIST changes: +KETO10TAB PO
== END ==
LOC: M EMP 12:58
PROVIDERS: ATTEND Family Medicine
DX: Z20.822 Contact with and (suspected) exposure to COVID-19 (principal)

== ENCOUNTER 2021-05-07 11:52 | Emergency (ER) | payer OTHER, BC ==
[~2021-05-07] VITALS: Ht 172.7 cm; Wt 71.9 kg
--- OUTSIDE RECORDS SUMMARY | 2021-05-07 11:59 | CCD ---
Author Author [facility] Organization [facility] Address Unknown Phone Unavailable Care Team Providers Care Special Education Instructor Name Role Phone Silvia Polanco Unavailable PROBLEMS Type Condition ICD9-CM Code [id number] Code Onset Dates Condition S tatus W/U Status Risk SNOMED Code Notes Problem Supervision of other normal Z34.80 Ac tive confirm 550692107 Problem Migraine G43.909 Active confirmed 53318076 ALLERGIES Allergen (clinical drug ingredient) Drug/Non Drug Allergy do cumented on EMR Reaction Allergy Type Onset Date Status Pollen Pollen Unknown Drug Allergy 08/04/2019 Active ENCOUNTERS from 1996 to 2021-03-31 Encounter Location Date Provider Diagnosis [facility] [address] [place] [address] [place] [address] Mar, Silvia Polanco Flank pain R10.9 and Fever, unspecified fever cause R50.9 IMMUNIZATIONS No Information SOCIAL HISTORY Tobacco Use: Social History Observation Description Date Details (start date - stop date) Never Smoker Sex Assigned At : Social History Observation Description Sex Assigned At Unknown Language: Question Answer Notes Languages spoken: Belarusian Domestic Violence: Question Answer Notes Status: Single No history of abuse Alcohol Screening: Question Answer Notes Did you have a drink containing alcohol in the past year? No Points 0 Interpretation Negative Tobacco Use: Question Answer Notes Are you a: never smoker REASON FOR REFERRAL No Information VITAL SIGNS No information MEDICATIONS Medication SIG (Take, Route, Frequency, Duration) Notes Start Da te End Date Status Womens Daily Formula - as directed Orally Active Zoloft 50 MG 1 tablet Orally Once a day for 90 days Jul Active Stool Softener 100 MG 1 tablet as needed for const ipation Orally twice per day for 30 day(s) Nov, Not-Taking Microgestin FE 06/15 1-20 MG-MCG 1 tablet Orally Once a day for 28 Not-Taking Xyzal Allergy 24HR 5 MG 1 tablet in the evening Orally Once a day Active Sprintec 28 0.25-35 MG-MCG 1 tablet Orally Once a day for 28 day (s) May, Active Topiramate 100 MG 1 tablet Orally Once a day Active Sprintec 28 0.25-35 MG-MCG 1 tablet Orally Once a day for 28 day (s) May, Not-Taking Zoloft 25 MG 1 tablet Orally Once a day for 30 day(s) 2020 Not-Taking PROCEDURES No Information RESULTS Component Value Reference Range [facility] RENAL US Reviewed date:03/30/2021 19:55:57 Interpretation: Performing Lab:[facility],[address]], ,[place] [id number] REASON FOR VISIT Right sided pain MEDICAL (GENERAL) HISTORY Type Description Date Medical History Chronic Migraines Medical History Brain Aneurysm Surgical History Dental Surgical History Elbow Hospitalization History Childbirth Goals Section No Information Health Concerns No Information MEDICAL EQUIPMENT No Information MENTAL STATUS No Information FUNCTIONAL STATUS No Information ASSESSMENTS Encounter Date Diagnosis Assessment Notes Treatment Notes Treatm ent Clinical Notes Mar, Flank pain (ICD-10 - R10.9) Mar, Fever, unspecified fever cause (ICD-10 - R50.9) PLAN OF TREATMENT Medication Medication Name Sig Start Date Stop Date Sprintec 28 0.25-35 MG-MCG 1 tablet Orally Once a day for 28 day(s) May, Pending Tests Test Name Order Date WWBC Pelvis non-OB COMPLETE US 2021-03-30 Insurance Providers Payer Name Payer Address Payer Phone Insured Name Patient Relati onship to Insured Coverage Start Date Coverage End Date R [facility] [address] [address] R [facility] [id number] CECILE WASHINGTON self [facility] [place] [address] [facility] [id number] [phone] CECILE WASHINGTON self
--- OUTSIDE RECORDS SUMMARY | 2021-05-07 11:59 | CCD | Continuity of Care Document ---
Author Author Angeles HUTCHISON PA Organization Unknown Address [address] [place] [id number] Phone [phone] Problems Description No Information Available Social History Type Date Description Comments Sex Unknown ETOH Use Occasionally consumes alcohol Tobacco Use Start: Unknown Patient has never smoked Tobacco Use Start: Unknown The Patient Has Never Vaped Allergies and adverse reactions Active Allergies Criticality Reaction | Severity Comments Date NKDA Unable to assess criticality 06/03/2012 Seasonal Unable to assess criticality 11/08/2016 Medications Active Medications SIG Qnty Indications Ordering Provide r Date Mirena (52 MG) Unknown Vitamin D (Ergocalciferol) Unknown Iron Unknown Topamax Unknown Gertrude Unknown History Medications No Active Medications Unknown 07/2020 - 03/29/2021 Immunizations CPT Code Status Date Vaccine Reaction Lot # [id number] Given 01/27/2014 PPD- TB Intradermal Test 11/07 PPD negative. 0mm. Lawrence JARA [id number] Vital Signs Date Vital Result Comment 03/29/2021 2:53pm BP Systolic 106 mmHg BP Diastolic 72 mmHg Heart Rate 101 /min Respiratory Rate 16 /min O2 % BldC Oximetry 99 % Body Temperature 98.4 F Weight 163.00 lb Height 69 inches 5'9" BMI (Body Mass Index) 24.1 kg/m2 Pain Level 3 08/01/2018 6:41pm BP Systolic 110 mmHg BP Diastolic 73 mmHg Heart Rate 104 /min O2 % BldC Oximetry 98 % Body Temperature 99.1 F Weight 152.00 lb Height 69 inches 5'9" BMI (Body Mass Index) 22.4 kg/m2 Pain Level 3 Results Test Acquired Date Facility Test Result H/L Range Note Respiratory Panel 03/29/2021 [facility] [address] [place] [address] [phone] Respiratory Panel This respiratory <SEE NOTE> 1 1 This respiratory PCR panel d etects Influenza A H1, H3 and 2009 H1 viruses, Influenza B virus, Resp iratory Syncytial Virus, Human metapneumovirus, Parainfluenza virus 1, 2, 3 and 4, Adenovirus, Rhinovirus/Enterovirus, Coronavirus HKU1, NL63, OC43, 229E and SARS-CoV-2 (COVID 19), Bordetella pertussis, Bordetella parapertussis, Mycoplasma pneumoniae and Chlamydia pneumoniae. NEGATIVE by MULTIPLEXED NUCLEIC ACID PCR SARS-CoV-2 (COVID 19) NEGATIVE - SARS-CoV-2 (COVID19) Procedures Date Code Description Status 03/29/2021 [address]08[address] Office/Outpatient Established Lo w MDM 20-29 Min Completed Medical Devices Description No Information Available Encounters Type Date Location Provider Dx Diagnosis Office Visit 03/29/2021 1:30p Main Office JANETTE Jimenez J06 .9 Acute upper respiratory infection, unspecified Z20.828 Contact w and exposure to ot h viral communicable diseases Assessments Date Code Description Provider 03/29/2021 J06.9 Acute upper respiratory infectio n, unspecified JANETTE Jimenez 03/29/2021 Z20.828 Contact with and (boyd spected) exposure to other viral communicable diseases JANETTE Jimenez Plan of Treatment No Information Available Functional Status Description No Information Available Mental Status Description No Information Available Referrals Description No Information Available
--- OUTSIDE RECORDS SUMMARY | 2021-05-07 11:59 | CCD | Continuity of Care Document ---
Author Author [facility] Organization Unknown Address [address] [place] [address] [place] [address] Phone [phone] Problems Description No Information Available Social History [...] Code Status Date Vaccine Reaction Lot # [id number] Given 01/27/2014 PPD- TB Intradermal Test 11/07 PPD negative. 0mm. Lawrence [id number] [id number] Vital Signs Date Vital Result Comment 03/29/2021 [...] Index) 22.4 kg/m2 Pain Level 3 Results Description No Information Available Procedures Date Code Description Status 03/29/2021 13276 Office/Outpatient Established Lo w MDM 20-29 Min [...]
--- OUTSIDE RECORDS SUMMARY | 2021-05-07 11:59 | CCD ---
Author Author [facility] Organization [facility] Address Unknown Phone Unavailable Care Team Providers Care Dental Technician Apprentice Name Role Phone Fátima HUTCHISON Unavailable Unavailable LETTIERE, Fátima SAVAGE Unavailable Unavailable LETTIERE, Fátima SAVAGE Unavailable Unavailable LETTIERE, Fátima SAVAGE Unavailable Unavailable LETTIERE, Fátima SAVAGE Unavailable Unavailable LETTIERE, Fátima SAVAGE Unavailable Unavailable LETTIERE, Fátima SAVAGE Unavailable Unavailable LETTIERE, Fátima SAVAGE Unavailable Unavailable LETTIERE, Fátima SAVAGE Unavailable Unavailable LETTIERE, Fátima SAVAGE Unavailable Unavailable LETTIERE, Fátima SAVAGE Unavailable Unavailable LETTIERE, Fátima SAVAGE Unavailable Unavailable LETTIERE, Fátima SAVAGE Unavailable Unavailable LETTIERE, Fátima SAVAGE Unavailable Unavailable LETTIERE, Fátima SAVAGE Unavailable Unavailable LETTIERE, Fátima SAVAGE Unavailable Unavailable LETTIERE, Fátima SAVAGE Unavailable Unavailable LETTIERE, Fátima SAVAGE Unavailable Unavailable LETTIERE, Fátima SAVAGE Unavailable Unavailable LETTIERE, Fátima SAVAGE Unavailable Unavailable LETTIERE, Fátima SAVAGE Unavailable Unavailable LETTIERE, A LEIGHA PA Unavailable Unavailable LETTIERE, A LEIGHA PA Unavailable Unavailable LETTIERE, A LEIGHA PA Unavailable Unavailable LETTIERE, A LEIGHA PA Unavailable Unavailable LETTIERE, A LEIGHA PA Unavailable Unavailable LETTIERE, A LEIGHA PA Unavailable Unavailable LETTIERE, A LEIGHA PA Unavailable Unavailable LETTIERE, A LEIGHA PA Unavailable Unavailable LETTIERE, A LEIGHA PA Unavailable Unavailable LETTIERE, A LEIGHA PA Unavailable Unavailable Padalino, Checo Ledesma MD Unavailable Unavailable Padalino, Checo Ledesma MD Unavailable Unavailable Padalino, Checo Ledesma MD Unavailable Unavailable Padalino, Checo Ledesma MD Unavailable Unavailable Padalino, Checo Ledesma MD Unavailable Unavailable Padalino, Checo Ledesma MD Unavailable Unavailable Padalino, Checo Ledesma MD Unavailable Unavailable Padalino, Checo Ledesma MD Unavailable Unavailable Padalino, Checo Ledesma MD Unavailable Unavailable Padalino, Checo Ledesma MD Unavailable Unavailable Padalino, Checo Ledesma MD Unavailable Unavailable Padalino, Checo Ledesma MD Unavailable Unavailable Padalino, Checo Ledesma MD Unavailable Unavailable Padalino, Checo Ledesma MD Unavailable Unavailable Padalino, Checo Ledesma MD Unavailable Unavailable Padalino, Checo Ledesma MD Unavailable Unavailable Padalino, Checo Ledesma MD Unavailable Unavailable Padalino, Checo Ledesma MD Unavailable Unavailable Padalino, Checo Ledesma MD Unavailable Unavailable Padalino, Checo Ledesma MD Unavailable Unavailable Padalino, Checo Ledesma MD Unavailable Unavailable Padalino, Checo Ledesma MD Unavailable Unavailable Padalino, Checo Ledesma MD Unavailable Unavailable Padalino, Checo Ledesma MD Unavailable Unavailable Padalino, Checo Ledesma MD Unavailable Unavailable Padalino, Checo Ledesma MD Unavailable Unavailable Padalino, Checo Ledesma MD Unavailable Unavailable Padalino, Checo Ledesma MD Unavailable Unavailable Padalino, Checo Ledesma MD Unavailable Unavailable Padalino, Checo Ledesma MD Unavailable Unavailable Padalino, Checo Ledesma MD Unavailable Unavailable Padalino, Checo Ledesma MD Unavailable Unavailable Padalino, Checo Ledesma MD Unavailable Unavailable Padalino, Checo Ledesma MD Unavailable Unavailable Padalino, Checo Ledesma MD Unavailable Unavailable Padalino, Checo Ledesma MD Unavailable Unavailable Padalino, Checo Ledesma MD Unavailable Unavailable Padalino, Checo Ledesma MD Unavailable Unavailable Padalino, Checo Ledesma MD Unavailable Unavailable Padalino, Checo Ledesma MD Unavailable Unavailable Padalino, Checo Ledesma MD Unavailable Unavailable Padalino, Checo Ledesma MD Unavailable Unavailable Padalino, Checo Ledesma MD Unavailable Unavailable Padalino, Checo Ledesma MD Unavailable Unavailable Padalino, Checo Ledesma MD Unavailable Unavailable Padalino, Checo Ledesma MD Unavailable Unavailable Padalino, Checo Ledesma MD Unavailable Unavailable Padalino, Checo Ledesma MD Unavailable Unavailable Padalino, Checo Ledesma MD Unavailable Unavailable Padalino, Checo Ledesma MD Unavailable Unavailable Padalino, Checo Ledesma MD Unavailable Unavailable Padalino, Checo Ledesma MD Unavailable Unavailable Padalino, Checo Ledesma MD Unavailable Unavailable Padalino, Checo Ledesma MD Unavailable Unavailable Padalino, Checo Ledesma MD Unavailable Unavailable Padalino, Checo Ledesma MD Unavailable Unavailable Padalino, Checo Ledesma MD Unavailable Unavailable Padalino, Checo Ledesma MD Unavailable Unavailable Padalino, Checo Ledesma MD Unavailable Unavailable Padalino, Checo Ledesma MD Unavailable Unavailable Padalino, Checo Ledesma MD Unavailable Unavailable Padalino, Checo Ledesma MD Unavailable Unavailable Padalino, Checo Ledesma MD Unavailable Unavailable Padalino, Checo Ledesma MD Unavailable Unavailable Padalino, Checo Ledesma MD Unavailable Unavailable Padalino, Checo Ledesma MD Unavailable Unavailable Padalino, Checo Ledesma MD Unavailable Unavailable Padalino, Checo Ledesma MD Unavailable Unavailable Padalino, Checo Ledesma MD Unavailable Unavailable Padalino, Checo Ledesma MD Unavailable Unavailable Padalino, Checo Ledesma MD Unavailable Unavailable Padalino, Checo Ledesma MD Unavailable Unavailable Padalino, Checo Ledesma MD Unavailable Unavailable Padalino, Checo Ledesma MD Unavailable Unavailable Padalino, Checo Ledesma MD Unavailable Unavailable Padalino, Checo Ledesma MD Unavailable Unavailable Padalino, Checo Ledesma MD Unavailable Unavailable Padalino, Checo Ledesma MD Unavailable Unavailable Padalino, Checo Ledesma MD Unavailable Unavailable Padalino, Checo Ledesma MD Unavailable Unavailable Padalino, Checo Ledesma MD Unavailable Unavailable Padalino, Checo Ledesma MD Unavailable Unavailable Padalino, Checo Ledesma MD Unavailable Unavailable Padalino, Checo Ledesma MD Unavailable Unavailable Padalino, Checo Ledesma MD Unavailable Unavailable Padalino, Checo Ledesma MD Unavailable Unavailable Padalino, Checo Ledesma MD Unavailable Unavailable Padalino, Checo Ledesma MD Unavailable Unavailable Padalino, Checo Ledesma MD Unavailable Unavailable Padalino, Checo Ledesma MD Unavailable Unavailable Padalino, Checo Ledesma MD Unavailable Unavailable Padalino, Checo Ledesma MD Unavailable Unavailable Padalino, Checo Ledesma MD Unavailable Unavailable Padalino, Checo Ledesma MD Unavailable Unavailable Padalino, Checo Ledesma MD Unavailable Unavailable Padalino, Checo Ledesma MD Unavailable Unavailable Padalino, Checo Ledesma MD Unavailable Unavailable Padalino, Checo Ledesma MD Unavailable Unavailable Padalino, Checo Ledesma MD Unavailable Unavailable Padalino, Checo Ledesma MD Unavailable Unavailable Padalino, Checo Ledesma MD Unavailable Unavailable Padalino, Checo Ledesma MD Unavailable Unavailable Padalino, Checo Ledesma MD Unavailable Unavailable Padalino, Checo Ledesma MD Unavailable Unavailable Padalino, Checo Ledesma MD Unavailable Unavailable Padalino, Checo Ledesma MD Unavailable Unavailable Padalino, Checo Ledesma MD Unavailable Unavailable Padalino, Checo Ledesma MD Unavailable Unavailable Padalino, Checo Ledesma MD Unavailable Unavailable Padalino, Checo Ledesma MD Unavailable Unavailable Padalino, Checo Ledesma MD Unavailable Unavailable Padalino, Checo Ledesma MD Unavailable Unavailable Padalino, Checo Ledesma MD Unavailable Unavailable Padalino, Checo Ledesma MD Unavailable Unavailable Padalino, Checo Ledesma MD Unavailable Unavailable Padalino, Checo Ledesma MD Unavailable Unavailable Padalino, Checo Ledesma MD Unavailable Unavailable Padalino, Checo Ledesma MD Unavailable Unavailable Padalino, Checo Ledesma MD Unavailable Unavailable Padalino, Checo Ledesma MD Unavailable Unavailable Padalino, Checo Ledesma MD Unavailable Unavailable Padalino, Checo Ledesma MD Unavailable Unavailable Padalino, Checo Ledesma MD Unavailable Unavailable Padalino, Checo Ledesma MD Unavailable Unavailable Padalino, Checo Ledesma MD Unavailable Unavailable Padalino, Checo Ledesma MD Unavailable Unavailable Padalino, Checo Ledesma MD Unavailable Unavailable Padalino, Checo Ledesma MD Unavailable Unavailable Padalino, Checo Ledesma MD Unavailable Unavailable Padalino, Checo Ledesma MD Unavailable Unavailable Padalino, Checo Ledesma MD Unavailable Unavailable Padalino, Checo Ledesma MD Unavailable Unavailable Padalino, Checo Ledesma MD Unavailable Unavailable Padalino, Checo Ledesma MD Unavailable Unavailable Padalino, Checo Ledesma MD Unavailable Unavailable Padalino, Checo Ledesma MD Unavailable Unavailable Padalino, Checo Ledesma MD Unavailable Unavailable Padalino, Checo Ledesma MD Unavailable Unavailable Padalino, Checo Ledesma MD Unavailable Unavailable Padalino, Checo Ledesma MD Unavailable Unavailable Padalino, Checo Ledesma MD Unavailable Unavailable Padalino, Checo Ledesma MD Unavailable Unavailable Padalino, Checo Ledesma MD Unavailable Unavailable Padalino, Checo Ledesma MD Unavailable Unavailable Padalino, Checo Ledesma MD Unavailable Unavailable Padalino, Checo Ledesma MD Unavailable Unavailable Padalino, Checo Ledesma MD Unavailable Unavailable Padalino, Checo Ledesma MD Unavailable Unavailable Padalino, Checo Ledesma MD Unavailable Unavailable Padalino, Checo Ledesma MD Unavailable Unavailable Padalino, Checo Ledesma MD Unavailable Unavailable Padalino, Checo Ledesma MD Unavailable Unavailable Padalino, Checo Ledesma MD Unavailable Unavailable Padalino, Checo Ledesma MD Unavailable Unavailable Padalino, Checo Ledesma MD Unavailable Unavailable Padalino, Checo Ledesma MD Unavailable Unavailable Padalino, Checo Ledesma MD Unavailable Unavailable Padalino, Checo Ledesma MD Unavailable Unavailable Padalino, Checo Baltazar MD Unavailable Unavailable hCeco Villagran MD Unavailable Unavailable Sah, P Dipendra PA Unavailable Unavailable Sah, P Dipendra PA Unavailable Unavailable Sah, P Dipendra PA Unavailable Unavailable Sah, P Dipendra PA Unavailable Unavailable Sah, P Dipendra PA Unavailable Unavailable Sah, P Dipendra PA Unavailable Unavailable Sah, P Dipendra PA Unavailable Unavailable Sah, P Dipendra PA Unavailable Unavailable Sah, P Dipendra PA Unavailable Unavailable Sah, P Dipendra PA Unavailable Unavailable Sah, P Dipendra PA Unavailable Unavailable Sah, P Dipendra PA Unavailable Unavailable Sah, P Dipendra PA Unavailable Unavailable Sah, P Dipendra PA Unavailable Unavailable Sah, P Dipendra PA Unavailable Unavailable Sah, P Dipendra PA Unavailable Unavailable Rogerio Fleming MD Unavailable Unavailable Rogerio Fleming MD Unavailable Unavailable Rogerio Fleming MD Unavailable Unavailable Rogerio Fleming MD Unavailable Unavailable Rogerio Fleming MD Unavailable Unavailable Rogerio Fleming MD Unavailable Unavailable Rogerio Fleming MD Unavailable Unavailable Rogerio Fleming MD Unavailable Unavailable Rogerio Fleming MD Unavailable Unavailable Rogerio Fleming MD Unavailable Unavailable Rogerio Fleming MD Unavailable Unavailable Rogerio Fleming MD Unavailable Unavailable Rogerio Fleming MD Unavailable Unavailable Rogerio Fleming MD Unavailable Unavailable Rogerio Fleming MD Unavailable Unavailable Rogerio Fleming MD Unavailable Unavailable Rogerio Fleming MD Unavailable Unavailable Rogerio Fleming MD Unavailable Unavailable Rogerio Fleming MD Unavailable Unavailable Rogerio Fleming MD Unavailable Unavailable Rogerio Fleming MD Unavailable Unavailable Rogerio Fleming MD Unavailable Unavailable Rogerio Fleming MD Unavailable Unavailable Rogerio Fleming MD Unavailable Unavailable Rogerio Fleming MD Unavailable Unavailable Rogerio Fleming MD Unavailable Unavailable Rogerio Fleming MD Unavailable Unavailable Rogerio Fleming MD Unavailable Unavailable Rogerio Fleming MD Unavailable Unavailable Rogerio Fleming MD Unavailable Unavailable Rogerio Fleming MD Unavailable Unavailable Rogerio Fleming MD Unavailable Unavailable Rogerio Fleming MD Unavailable Unavailable Rogerio Fleming MD Unavailable Unavailable Rogerio Fleming MD Unavailable Unavailable Rogerio Fleming MD Unavailable Unavailable Rogerio Fleming MD Unavailable Unavailable Rogerio Fleming MD Unavailable Unavailable Rogerio Fleming MD Unavailable Unavailable Rogerio Fleming MD Unavailable Unavailable Rogerio Fleming MD Unavailable Unavailable Rogerio Fleming MD Unavailable Unavailable Rogerio Fleming MD Unavailable Unavailable Rogerio Fleming MD Unavailable Unavailable Rogerio Fleming MD Unavailable Unavailable Rogerio Fleming MD Unavailable Unavailable Rogerio Fleming MD Unavailable Unavailable Rogerio Fleming MD Unavailable Unavailable Rogerio Fleming MD Unavailable Unavailable Rogerio Fleming MD Unavailable Unavailable Rogerio Fleming MD Unavailable Unavailable Rogerio Fleming MD Unavailable Unavailable Rogerio Fleming MD Unavailable Unavailable Rogerio Fleming MD Unavailable Unavailable Rogerio Fleming MD Unavailable Unavailable Rogerio Fleming MD Unavailable Unavailable Rogerio Fleming MD Unavailable Unavailable Rogerio Fleming MD Unavailable Unavailable Rogerio Fleming MD Unavailable Unavailable Rogerio Fleming MD Unavailable Unavailable Rogerio Fleming MD Unavailable Unavailable Rogerio Fleming MD Unavailable Unavailable Rogerio Fleming MD Unavailable Unavailable Rogerio Fleming MD Unavailable Unavailable Rogerio Fleming MD Unavailable Unavailable Rogerio Fleming MD Unavailable Unavailable Rogerio Fleming MD Unavailable Unavailable Rogerio Fleming MD Unavailable Unavailable Rogerio Fleming MD Unavailable Unavailable Rogerio Fleming MD Unavailable Unavailable Rogerio Fleming MD Unavailable Unavailable Rogerio Fleming MD Unavailable Unavailable Rogerio Fleming MD Unavailable Unavailable Rogerio Fleming MD Unavailable Unavailable Rogerio Fleming MD Unavailable Unavailable Rogerio Fleming MD Unavailable Unavailable Lonnie, O Rah HANNAH Unavailable Unavailable Lonnie, O Rah HANNAH Unavailable Unavailable Lonnie, O Rah HANNAH Unavailable Unavailable Lonnie, O Rah MD Unavailable Unavailable TANA, 0000{ Unavailable Unavailable Re-disclosure Warning The records that you are about to access may contain information from federally-assisted alcohol or drug abuse programs. If such information is present, then the following federally mandated warning applies: This information has been disclosed to you from records protected by federal confidentiality rules (42 CFR part 2). The federal rules prohibit you from making any further disclosure of this information unless further disclosure is expressly permitted by the written consent of the person to whom it pertains or as otherwise permitted by 42 CFR part 2. A general authorization for the release of medical or other information is NOT sufficient for this purpose. The Federal rules restrict any use of the information to criminally investigate or prosecute any alcohol or drug abuse patient.The records that you are about to access may contain highly sensitive health information, the redisclosure of which is protected by Article 27-F of the [facility] Public Health law. If you continue you may have access to information: Regarding HIV / AIDS; Provided by facilities licensed or operated by the [facility] Office of Mental Health; or Provided by the [facility] Office for People With Developmental Disabilities. If such information is present, then the following [facility] mandated warning applies: This information has been disclosed to you from confidential records which are protected by state law. State law prohibits you from making any further disclosure of this information without the specific written consent of the person to whom it pertains, or as otherwise permitted by law. Any unauthorized further disclosure in violation of state law may result in a fine or custodial sentence or both. A general authorization for the release of medical or other information is NOT sufficient authorization for further disc losure. Family History Family Member Name Family Member Gender Family Member Status Date o f Status Description Data Source(s) Unknown Unknown Problem [facility]ENT ([facility]) Unknown Unknown Problem [facility] ([facility]) Encounters Encounter Providers Location Date Indications Data Source(s ) Unknown [address] [facility] [address] 03/30/2021 12:00:00 AM EDT eCW1 ([facility]) Outpatient Attender: LEIGHA Marques fred 03/29/2021 01:30:00 PM EDT MEDENT ([facility]) Outpatient Attender: Rah Fleming MD [facility] 01/24/2021 03:00:00 PM EDT MEDENT ([facility]) Unknown [address] [facility] [address] 12/14/2020 12:00:00 AM EDT eCW1 ([facility]) Outpatient Attender: Baltazar Villagran MDAdmitter: Baltazar nathan MD 11/14/2020 07:40:00 AM EDT - 11/14/2020 10:52:00 AM EDT CEREBRAL ANEURYSM, NONRUPTURED [facility] CEREBRAL ANEURYSM, NONRUPTURED Patient discharged. Outpatient Attender: 0000{ TANA 11/14/2020 07:40:00 AM E DT [facility] Outpatient Attender: Abram SAVAGE [facility] [place] 11/10/2020 08:20:00 AM EDT [facility] ([facility]) Outpatient Attender: Rah Fleming MD [facility] 10/12/2020 01:15:00 PM EDT MEDENT ([facility]) Outpatient Attender: Baltazar Villagran MD [facility] [place] 09/28/2020 01:00:00 PM EDT MED[facility] ([facility]) ([facility] PROC) [facility] [address] [place] [address] 09/09/2020 12:00:00 AM EDT eCW1 ([facility] [place]) Unknown [address] [facility] [address] 09/01/2020 12:00:00 AM EDT eCW1 [facility] [place]) Outpatient [address] [facility] [address] 08/09/2020 12:00:00 AM EDT [facility]CW1 [facility] [place]) Outpatient Attender: Rah Fleming MD [facility] 07/01/2020 08:00:00 AM EST MEDENT ([facility]) Outpatient [address] [facility] [address] 06/24/2020 12:00:00 AM EST eCW1 ([facility]) Unknown [address] [facility] [address] 06/10/2020 12:00:00 AM EST eCW1 ([facility]) Unknown [address] [facility] [place] [address] 03/08/2020 12:00:00 AM EDT eCW1 ([facility]) Immunizations Vaccine Date Status Description Data Source(s) COVID-19 VACC, MRNA(ISC8)/PF 02/27/2021 12:00:00 AM EDT completed [facility] COVID-19 VACCINE Pfizer 02/27/2021 12:00:00 AM EDT completed [facility] Vaccine Series Complete: YESThis Data wa s Submitted to [facility] [address]. COVID-19 VACCINE Pfizer 01/31/2021 12:00:00 AM EDT completed [facility] Vaccine Series Complete: NOThis Data was Submitted to [facility] [address]. Medications Medication Brand Name Start Date Product Form Dose Route Admi nistrative Instructions Pharmacy Instructions Status Indications Reaction Description Data Source(s) 10 mg 03/31/2021 12:00:00 AM EDT tablet 12 TAKE ONE TABLET BY MOUTH EVERY 6 HOURS NEEDED FOR PAIN TAKE ONE TABLET BY MOUTH EVERY 6 HOURS A S NEEDED FOR PAIN SOLD: 03/31/2021 [facility] No Active Medications 03/29/2021 12:00:00 AM EDT completed MEDENT ([facility]) 100 mg 01/25/2021 12:00:00 AM EDT tablet 30 TAKE ONE TABLET BY MOUTH AT BEDTIME TAKE ONE TABLET BY MOUTH AT BEDTIME SOLD: 01/27/2021 [facility] 875-125 mg 08/22/2020 12:00:00 AM EDT tablet 14 TAKE ONE TABLET BY MOUTH TWICE A DAY FOR 7 DAYS TAKE ONE TABLET BY MOUTH TWICE A DAY FOR 7 DAYS SOLD: 08/22/2020 [facility] Sertraline 50 MG Oral Tablet [Zoloft] Zoloft 50 MG Zoloft 50 MG 08/09/2020 12:00:00 AM EDT 1.0 {tablet} active Zo loft 50 MG eCW1 ([facility]) Sertraline 50 MG Oral Tablet [Zoloft] Zoloft 50 MG Zoloft 50 MG 08/09/2020 12:00:00 AM EDT 1.0 {tablet} active Zo loft 50 MG eCW1 ([facility]) Sertraline 50 MG Oral Tablet [Zoloft] Zoloft 50 MG Zoloft 50 MG 08/09/2020 12:00:00 AM EDT 1.0 {tablet} active Zo loft 50 MG eCW1 ([facility]) Sertraline 50 MG Oral Tablet [Zoloft] Zoloft 50 MG Zoloft 50 MG 08/09/2020 12:00:00 AM EDT 1.0 {tablet} active Zo loft 50 MG eCW1 ([facility]) Sertraline 50 MG Oral Tablet [Zoloft] Zoloft 50 MG Zoloft 50 MG 08/09/2020 12:00:00 AM EDT 1.0 {tablet} active Zo loft 50 MG eCW1 ([facility]) 100 mg 07/02/2020 12:00:00 AM EST tablet 30 TAKE ONE TABLET BY MOUTH AT BEDTIME TAKE ONE TABLET BY MOUTH AT BEDTIME SOLD: 07/02/2020 [facility] 25 mg 07/01/2020 12:00:00 AM EST tablet 42 TAKE ONE TABLET BY MOUTH @ BEDTIME FOR 7 DAYS, THEN 2 TABS. @BEDTIME FOR 7 DAYS, THEN 3 TABS. @BEDTIME FOR 7 DAYS, THEN 100MG @BEDTIME TAKE ONE TABLET BY MOUTH @ BEDTIME FOR 7 DAYS, THEN 2 TABS. @BEDTIME FOR 7 DAYS, THEN 3 TABS. @BEDTIME FOR 7 DAYS, THEN 100MG @BEDTIME SOLD: 07/02/2020 [facility] topiramate 25 MG Oral Tablet Topiramate 07/01/2020 12:00:00 AM EST active MEDENT ([facility] ) topiramate 100 MG Oral Tablet Topiramate 07/01/2020 12:00:00 AM EST ORAL active MEDENT ([facility] ) Sertraline 25 MG Oral Tablet [Zoloft] Zoloft 25 MG Zoloft 25 MG 06/24/2020 12:00:00 AM EST 1.0 {tablet} suspended Zoloft 25 MG eCW1 ([facility]) Sprintec 28 0.25-35 MG-MCG Sprintec 28 0.25-35 MG-MCG 2020 12:00:00 AM EST 1.0 {tablet} active Sprintec 28 0.25-35 MG-MCG eCW1 ([facility]) Sprintec 28 0.25-35 MG-MCG Sprintec 28 0.25-35 MG-MCG 2020 12:00:00 AM EST 1.0 {tablet} suspended Sprintec 28 0.25-35 MG-MCG eCW1 ([facility]) Sprintec 28 0.25-35 MG-MCG Sprintec 28 0.25-35 MG-MCG 2020 12:00:00 AM EST 1.0 {tablet} suspended Sprintec 28 0.25-35 MG-MCG eCW1 ([facility]) Sprintec 28 0.25-35 MG-MCG Sprintec 28 0.25-35 MG-MCG 2020 12:00:00 AM EST 1.0 {tablet} suspended Sprintec 28 0.25-35 MG-MCG eCW1 ([facility]) Sertraline 25 MG Oral Tablet [Zoloft] Zoloft 25 MG Zoloft 25 MG 06/24/2020 12:00:00 AM EST 1.0 {tablet} active Zo loft 25 MG eCW1 ([facility]) Sprintec 28 0.25-35 MG-MCG Sprintec 28 0.25-35 MG-MCG 2020 12:00:00 AM EST 1.0 {tablet} active Sprintec 28 0.25-35 MG-MCG eCW1 ([facility]) Sertraline 25 MG Oral Tablet [Zoloft] Zoloft 25 MG Zoloft 25 MG 06/24/2020 12:00:00 AM EST 1.0 {tablet} suspended Zoloft 25 MG eCW1 ([facility]) Sprintec 28 0.25-35 MG-MCG Sprintec 28 0.25-35 MG-MCG 2020 12:00:00 AM EST 1.0 {tablet} active Sprintec 28 0.25-35 MG-MCG eCW1 ([facility]) Sertraline 25 MG Oral Tablet [Zoloft] Zoloft 25 MG Zoloft 25 MG 06/24/2020 12:00:00 AM EST 1.0 {tablet} active Zo loft 25 MG eCW1 ([facility]) Sprintec 28 0.25-35 MG-MCG Sprintec 28 0.25-35 MG-MCG 2020 12:00:00 AM EST 1.0 {tablet} suspended Sprintec 28 0.25-35 MG-MCG eCW1 ([facility]) Sprintec 28 0.25-35 MG-MCG Sprintec 28 0.25-35 MG-MCG 2020 12:00:00 AM EST 1.0 {tablet} active Sprintec 28 0.25-35 MG-MCG eCW1 ([facility]) Sertraline 25 MG Oral Tablet [Zoloft] Zoloft 25 MG Zoloft 25 MG 06/24/2020 12:00:00 AM EST 1.0 {tablet} active Zo loft 25 MG eCW1 ([facility]) Sertraline 25 MG Oral Tablet [Zoloft] Zoloft 25 MG Zoloft 25 MG 06/24/2020 12:00:00 AM EST 1.0 {tablet} suspended Zoloft 25 MG eCW1 ([facility]) Sprintec 28 0.25-35 MG-MCG Sprintec 28 0.25-35 MG-MCG 2020 12:00:00 AM EST 1.0 {tablet} suspended Sprintec 28 0.25-35 MG-MCG eCW1 ([facility]) Sprintec 28 0.25-35 MG-MCG Sprintec 28 0.25-35 MG-MCG 2020 12:00:00 AM EST 1.0 {tablet} active Sprintec 28 0.25-35 MG-MCG eCW1 ([facility]) Sprintec 28 0.25-35 MG-MCG Sprintec 28 0.25-35 MG-MCG 2020 12:00:00 AM EST 1.0 {tablet} suspended Sprintec 28 0.25-35 MG-MCG eCW1 ([facility]) Sprintec 28 0.25-35 MG-MCG Sprintec 28 0.25-35 MG-MCG 2020 12:00:00 AM EST 1.0 {tablet} active Sprintec 28 0.25-35 MG-MCG eCW1 ([facility]) [facility] 06/15 28 Day Pack 1 mg-20 mcg (21)/75 mg (7) NORETHINDRONE ACETATE- ETHINYL ESTRADIOL/FERROUS FUMARATE 05/09/2020 12:00:00 AM EST tablet 28 TAKE ONE TABLET BY MOUTH EVERY DAY TAKE ONE TABLET BY MOUTH EVERY DAY SOLD: 06/24/2020 [facility] 06/15 28 Day Pack 1 mg-20 mcg (21)/75 mg (7) NORETHINDRONE ACETATE- ETHINYL ESTRADIOL/FERROUS FUMARATE 05/09/2020 12:00:00 AM EST tablet 28 TAKE ONE TABLET BY MOUTH EVERY DAY TAKE ONE TABLET BY MOUTH EVERY DAY SOLD: 05/09/2020 [facility] 06/15 28 Day Pack 1 mg-20 mcg (21)/75 mg (7) NORETHINDRONE ACETATE- ETHINYL ESTRADIOL/FERROUS FUMARATE 04/12/2020 12:00:00 AM EST tablet 28 TAKE ONE TABLET BY MOUTH EVERY DAY TAKE ONE TABLET BY MOUTH EVERY DAY SOLD: 04/14/2020 [facility] Insurance Providers Payer name Policy type / Coverage type Policy ID Covered alliance party ID Covered alliance party's relationship to lou Policy Lou Plan Information [facility] [id number] SF2 [id number] MEDICAID [id number] SP [id number] [facility] [id number] [facility] [id number] Medicaid [facility] [facility] Healthcare S D [id number] SELF [id number] Medicaid P [id number] S [id number] F F [facility] [id number] SF2 [id number] [facility] [id number] PARENT [id number] 2 BCBS EMPIRE DHEERAJ DIV [id number] BCBS EMPIRE DHEERAJ DIV [id number] LP2 [id number] [facility] [id number] [id number] JOZEF [id number] SP [id number] UMR [facility] [id number] SF2 [id number] SELF PAY O UNAVAILABLE [id number] S UNAVAILA BLE Self Pay P UNAVAILABLE S UNAVAILA BLE Umr/[facility]/[employer] Health Maintenance Organization (HMO) [id number] Family Dependent [id number] Medicaid [place] Medigap Part B [id number] Self [id number] Umr Commercial [id number] Self [id number] UMR F [id number] SELF [id number] 2 UMR F [id number] SELF [id number] Medicaid S UNAVAILABLE S UNAVAILA BLE Managed Care - [facility] P UNAVAILABLE S UNAVAILABLE MEDICAID [id number] SP [id number] [facility] COMMUNITY PLAN [facility] [id number] SP [id number] [facility] [id number] SP [id number] [employer] Commercial [id number] Family Dependent [id number] MEDICAID [id number] SP [id number] [employer] PPO O [id number] S [id number] MEDICAID M [id number] S [id number] [employer] PPO O [id number] S [id number] [employer] Commercial [id number] Family Dependent [id number] [employer] [id number] FA2 [id number] [employer] [id number] SF2 [id number] [facility] COMMUNITY [facility] [id number] SP [id number] [facility] Health Maintenance Organization (HMO) [id number] Self [employer] Commercial [id number] Family Dependent [employer] PPO S [id number] S [id number] [employer] BCBS P [id number] S VYB SELF PAY UNAVAILABLE UNAVAILA BLE HMO BLUE [id number] SP [id number] BCBS EMPIRE DHEERAJ DIV [id number] P UNAVAILABLE UNAVAILA BLE UMR [facility] [id number] SF2 [id number] [facility] [id number] [id number] BCBS EMPIRE DHEERAJ DIV [id number] [employer] BLUE CROSS BLUE SHIELD HEA [id number] SO [id number] UMR HEA [id number] ST [id number] [employer] BLUE CROSS BLUE SHIELD HEA [id number] SO [id number] [facility] [id number] SP [id number] UMR [facility] [id number] SP [id number] BCBS EMPIRE DHEERAJ DIV [id number] Problems, Conditions, and Diagnoses Code Display Name Description Problem Type Effective Dates Data Source(s) 346891 Occipital headache Occipital headache Problem 12:00:00 AM EST [facility] ([facility], ) [id number] Migraine Migraine Problem 07/01/2020 12:00:00 AM ES T [facility] ([facility], ) Surgeries/Procedures Procedure Description Date Indications Data Source(s) OFFICE OUTPATIENT VISIT 15 MINUTES 03/29/2021 12:00:00 AM EDT [facility] ([facility]) OFFICE OUTPATIENT VISIT 25 MINUTES 01/24/2021 12:00:00 AM EDT [facility] ([facility], ) Angiography Internal Corotid Of The Ipsil Intrac Circulation 11/14/2020 12:00:00 AM EDT [facility] ([facility]) 3D RENDER W/INTERP CT/MRI/US/OTH EBONIE W/POSTPROC 11/14 12:00:00 AM [facility]T [facility] Moderate Sedation Services; Same Phys Intl 15 Mins; PT >= 5 Years 11/14/2020 12:00:00 AM EDT [facility] OFFICE OUTPATIENT VISIT 25 MINUTES 11/10/2020 12:00:00 AM EDT [facility] ([facility]) OFFICE OUTPATIENT VISIT 25 MINUTES 10/12/2020 12:00:00 AM EDT [facility] ([facility], ) OFFICE OUTPATIENT NEW 45 MINUTES 09/28/2020 12:00:00 A M EDT [facility]) ELECTROENCEPHALOGRAM W/REC AWAKE&ASLEEP 09/22/2020 12: 00:00 AM EDT [facility] ([facility] ) ELECTROENCEPHALOGRAM W/REC AWAKE&ASLEEP 09/22/2020 12: 00:00 AM EDT [facility] ([facility], ) URINE TEST 09/09/2020 12:00:00 AM EDT eC ([facility]) Medication: Mirena 52 mg (Levonorgestrel -releasing intrauterine contraceptive system) 09/09/2020 12:00:00 AM EDT eC ([facility]) Magnetic Resonance Angiogtaphy Head W/O Contrast Material(S) 07/26/2020 12:00:00 AM EST [facility] ([facility] ) Magnetic Resonance Angiogtaphy Head W/O Contrast Material(S) 07/26/2020 12:00:00 AM EST [facility] ([facility] ) MRI BRAIN BRAIN STEM W/O CONTRAST MATERIAL 07/26/2020 12:00:00 AM EST [facility] ([facility] ) MRI BRAIN BRAIN STEM W/O CONTRAST MATERIAL 07/26/2020 12:00:00 AM EST [facility] ([facility], ) TSTG ANS FUNCJ CARDIOVAGAL INNERVAJ PARASYMP 12:00:00 AM EST [facility] ([facility], ) TESTING AUTONOMIC NERVOUS SYSTEM FUNCTION 07/20/2020 1 2:00:00 AM EST [facility] ([facility]) Results ID Date Data Source [id number] 05/02/2021 12:58:00 PM EST [facility] Name Value Range Interpretation Code Description Data Kerrie rce(s) Supporting Document(s) SARS coronavirus 2 RNA [Presence] in Res piratory specimen by DEBI with probe detection POSITIVE [facility] This lab was ordered by [facility] a nd reported by [facility]. ID Date Data Source [facility] 03/30/2021 12:00:00 AM EDT eCW1 ([facility]) Name Value Range Interpretation Code Description Data Kerrie rce(s) Supporting Document(s) [facility] eCW1 ([facility]) ID Date Data Source [id number] 03/29/2021 03:29:00 PM EDT [facility] Name Value Range Interpretation Code Description Data Kerrie rce(s) Supporting Document(s) SARS-CoV-2 (COVID 19) NEGATIVE - SARS-CoV-2 (COVID19) [facility] This lab was ordered by [facility] a nd reported by [facility]. ID Date Data Source [id number] 03/29/2021 03:29:00 PM EDT [facility] ([facility]) Name Value Range Interpretation Code Description Data Kerrie rce(s) Supporting Document(s) Respiratory Panel Laboratory test result [facility] ([facility]) This respiratory PCR panel detects Influ bart A H1, H3 and 2009 H1 viruses, Influenza B virus, Resp iratory Syncytial Virus, Human metapneumovirus, Parainfluenza virus 1, 2, 3 and 4, Adenovirus, Rhinovirus/Enterovirus, Coronavirus HKU1, NL63, OC43, 229E and SARS-CoV-2 (COVID 19), Bordetella pertussis, Bordetella parapertussis, Mycoplasma pneumoniae and Chlamydia pneumoniae. NEGATIVE by MULTIPLEXED NUCLEIC ACID PCR SARS-CoV-2 (COVID 19) NEGATIVE - SARS-CoV-2 (COVID19) ID Date Data Source [id number] 03/29/2021 12:00:00 AM EDT [facility] Name Value Range Interpretation Code Description Data Kerrie rce(s) Supporting Document(s) SARS-CoV2 Rapid Antigen Negative [facility] This lab was ordered by [facility] and reported by [facility]. ID Date Data Source [id number] 11/14/2020 09:56:00 AM EDT [facility] DATE OF EXAM: 11/14/2020ate of Procedur e: 11/14/2020reoperative Diagnosis: Evaluate for left PComm aneurysm versus infundibulumPostoperative Diagnosis: Left PComm infundibulum, no aneurysm seen Procedure(s):1. Diagnostic cerebral angiogram: - Left CCA cervical (2D); Left ICA cerebral (2D/3D); Right femoral runoff (2D)2. Conscious sedation for 10 minutes3. Right femoral 5F Mynx Bowling Ball Finisher closure device placed for arteriotomy closure Surgeon: Baltazar Villagran MDAssistant: Damon Matos, Prior problems with sedation: NonePotential drug/sedative interactions: NoneAllergies: NKDA Mallampati class IIASA class II Medications/Sedation: 1 mg of versed IV; 50 mcg of fentanyl IV; 4mg Zofran IV Indication: Mrs. 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 She reports that taking Topamax helps the headache. After reviewing her MRA scan, she was recommended and discussed for formal diagnostic cerebral angiogram to evaluate aneurysm further and also to have baseline study. She agreed to proceed with the procedure. The risks, benefits and alternatives of this procedure were explained to the patient and her questions were answered to her satisfaction. She understands and agrees to proceed with the diagnostic cerebral angiogram. Written informed consent was obtained prior to proceeding with the angiogram. Procedure details: The patient was properly identified by comparing the signed consent with the name [facility] to confirm the proper medical record number, date of , and patient name and when this was confirmed the patient was placed on the [employer] biplane angio table in supine position. The right groin site was prepped and draped in usual fashion and a timeout was performed, confirming again the correct patient and procedure being performed. Conscious sedation was administered and 10 cc of 2% lidocaine without epinephrine was injected into the right groin site around the femoral artery and an arteriotomy was performed using the modified Seldinger technique with a 5 Ugandan micropuncture kit. I then placed a 5 Ugandan sheath into the right femoral artery without any complications or difficulties. I then placed the 4 Ugandan angled glide catheter over a glide wire to the aortic arch and then removed the glide wire and double flushed the catheter by aspirating back with one saline syringe, and then flushing forward with clean heparinized saline syringe. I then accessed the left common carotid artery and performed a cervical diagnostic angiogram which demonstrates a normal left carotid bifurcation without evidence of hemodynamically significant arterial stenosis, dissection or occlusion appreciated, with normal anterograde blood flow present. I then selectively catheterized the left internal carotid artery over a glidewire using roadmapping techniques under fluoroscopic guidance. I then performed a cerebral diagnostic angiogram from the left internal carotid artery injection which demonstrates normal filling of the left MCA and JANUARY territories without evidence of intracranial aneurysms, early venous drainage, hemodynamically significant intracranial arterial stenosis or occlusion or significant vessel irregularity to clearly show vasospasm or vasculitis. There is cross filling of contrast to the contralateral JANUARY territory with a widely patent anterior communicating artery present. There is a very small left posterior communicating artery seen with no significant contribution to the posterior circulation. There is a small infundibulum noted at the origin of this small left posterior communicating artery. A 3D cerebral angiogram from the left internal carotid artery injection was performed which confirms the findings from the 2D cerebral angiogram runs noted above. The 3D imaging was processed and interpreted on an independent [employer] workstation. At the end of the procedure I then completely removed the catheter from the patient and performed a right femoral runoff to confirm that there were no complications at the femoral arteriotomy access site. I then placed a 5F Mynx Bowling Ball Finisher closure device in the right femoral arteriotomy site without complications. The patient tolerated this procedure well. I was present for the duration of the procedure and I performed and/or directly supervised all critical components of the procedure. Total contrast: 40 cc of Omnipaque- 300Total fluoro time: 0.6 minutesTotal fluoro dose: 221.38 mGy Angiographic i nterpretation:1. Left common carotid cervical angiography shows a normal carotid bifurcation without evidence of stenosis, dissection, or other vascular abnormalities, and with normal anterograde blood flow. 2. Selective left internal carotid artery catheterization with cerebral views shows normal filling of the left MCA and JANUARY territories without evidence of intracranial aneurysms, early venous drainage, hemodynamically significant intracranial arterial stenosis or occlusion or significant vessel irregularity to clearly show vasospasm or vasculitis. There is cross filling of contrast to the contr alateral JANUARY territory with a widely patent anterior communicating artery present. There is a very small left posterior communicating artery seen with no significant contribution to the posterior circulation. There is a small infundibulum noted at the origin of this small left posterior communicating artery. A 3D cerebral angiogram from the left internal carotid artery injection was performed which confirms the findings from the 2D cerebral angiogram runs noted above. The 3D imaging was processed and interpreted on an independent [employer] workstation. 3. Right femoral runoff angiogram showed the arteriotomy access site located over the mid femoral head and there is no significant peripheral vascular disease, calcification, or stenosis. The sheath was inserted above the femoral bifurcation. Impression: Mrs. Angeles Garcia had an uneventful diagnostic cerebral angiogram study which shows no cerebral aneurysm, and rather there is a small left PComm infundibulum which does not require any further workup or monitoring. She can follow up on an as needed basis at this point as there is no cerebral aneurysm identified. I relayed the results of this angiogram to the patient and to her family over the phone at the end of the procedure, and I answered all of their questions to their satisfaction. They understand and agree with this plan.End of diagnostic report for accession: [id number] Interpreted: Baltazar Villagran MDTranscribed: 11/14/2020 09:43 AMSigned: 11/14/2020 09:56 AM Baltazar Villagran MD [facility] ACC # [id number] BILL # [id number] NIRR Name Value Range Interpretation Code Description Data Kerrie rce(s) Supporting Document(s) ID Date Data Source [id number] 11/10/2020 10:45:00 AM EDT [facility]) Name Value Range Interpretation Code Description Data Kerrie rce(s) Supporting Document(s) Glucose, Fasting 98 mg/dL 70-100 Normal (applies to non-numeric results) [facility] ([facility]) Blood Urea Nitrogen 13 mg/dL 7-18 Normal (applies to non-nume swapnil results) [facility]) Sodium Level 137 meq/L 136-145 Normal (applies to non-numeric res ults) [facility]) Glomerular Filtration Rate Laboratory test result Normal (applies to non- numeric results) [facility]) <content>Units are mL/min/1.73 m2</content>
<content></content>
<content>Chronic Kidney Disease Staging per NKF:</content>
<content></content>
<content>Stage I & II GFR >=60 Normal to Mildly Decreased</content>
<content>Stage III GFR 30- 59 Moderately Decreased</content>
<content>Stage IV GFR 15-29 Severely Decreased</content>
<content>Stage V GFR <15 Very Little GFR Left</content>
<content>ESRD GFR <15 on COD CLERK</content>
<content></content> Creatinine For GFR 0.73 mg/dL 0.55-1.30 Normal (applies to non -numeric results) [facility] ([facility]) Potassium Serum 4.7 meq/L 3.5-5.1 Normal (applies to non-numeric results) [facility] ([facility]) Carbon Dioxide Level 27 meq/L 21-32 Normal (applies to non-num chris results) [facility]) Chloride Level 106 meq/L 98-107 Normal (applies to non-numeric r esults) [facility] ([facility]) Calcium Level 9.9 mg/dL 8.5-10.1 Normal (applies to non-numeric re sults) [facility] ([facility]) Anion Gap 4 meq/L 8-16 Below low normal [facility] ([facility]) ID Date Data Source [id number] 11/10/2020 10:45:00 AM EDT [facility] ([facility]) Name Value Range Interpretation Code Description Data Kerrie rce(s) Supporting Document(s) aPTT in Platelet poor plasma by Coagulation assay 26.3 s 24.2-38.5 Normal (applies to non-numeric results) [facility] ([facility]) ID Date Data Source [id number] 11/10/2020 10:45:00 AM EDT [facility]) Name Value Range Interpretation Code Description Data Kerrie rce(s) Supporting Document(s) Prothrombin Time 12.9 s 12.5-14.3 Normal (applies to non-numeric results) [facility] ([facility]) Inr 0.95 Normal (applies to non-numeric resul ts) [facility]) THERAPUTIC HUMAN INR VALUES INDICATIONS NORMAL RANGES PROPHYLAXIS/TREATMENT OF: VENOUS THROMBOSIS 2.0-3.0 PULMONARY EMBOLISM 2.0-3.0 PREVENTION OF SYSTEMIC EMBOLISM FROM: TISSUE HEART VALVES 2.0-3.0 ACUTE MYOCARDIAL INFARCTION 2.0-3.0 VALVULAR HEART DISEASE 2.0-3.0 ATRIAL FIBRILLATION 2.0-3.0 MECHANICAL VALVES(HIGH RISK) 2.5-3.5 RECURRENT MYOCARDIAL INFARCTION 2.5-3.5 ID Date Data Source [id number] 11/10/2020 10:45:00 AM EDT [facility] ([facility]) Name Value Range Interpretation Code Description Data Kerrie rce(s) Supporting Document(s) Red Blood Count 4.59 10 4.00-5.40 Normal (applies to non-numeric results) [facility]) White Blood Count 6.3 10 4.0-10.0 Normal (applies to non-numeri c results) [facility]) Mean Corpuscular Volume 91.1 fl 80.0-96.0 Normal ( applies to non-numeric results) [facility] ([facility]) Hemoglobin 13.4 g/dL 12.0-15.5 Normal (applies to non-numeric resul ts) [facility]) Hematocrit 41.8 % 36.0-47.0 Normal (applies to non-numeric resul ts) [facility]) Mean Corpuscular Hemoglobin 29.2 pg 27.0-33.0 Norm al (applies to non-numeric results) [facility] ([facility]) Mean Corpuscular HGB Conc 32.1 g/dL 32.0-36.5 Normal (applies to non-numeric results) [facility] ([facility]) Red Cell Distribution Width 12.5 % 11.5-14.5 Norm al (applies to non-numeric results) [facility] ([facility]) Platelet Count, Automated 290 10 150-450 Normal (applies to non-numeric results) [facility] ([facility]) Neutrophils % 62.5 % 36.0-66.0 Normal (applies to non-numeric re sults) [facility] ([facility]) Eos % 1.1 % 0.0-3.0 Normal (applies to non-numeric resul ts) [facility] ([facility]) [place] % 8.6 % 2.0-8.0 Above high normal [facility] Lymph % 27.1 % 24.0-44.0 Normal (applies to non-numeric resul ts) [facility] ([facility]) Immature Granulocyte % 0.2 % 0-3.0 Normal (applies to non-n umeric results) [facility] ([facility]) Nucleated Red Blood Cell % 0.0 % 0-0 Normal (applies to n on-numeric results) [facility] ([facility]) Baso % 0.5 % 0.0-1.0 Normal (applies to non-numeric resul ts) [facility] ([facility]) [place] # 0.5 10 0.0-0.8 Normal (applies to non-numeric resul ts) [facility] ([facility]) Neutrophils # 4.0 10 1.5-8.5 Normal (applies to non-numeric re sults) [facility] ([facility]) Lymph # 1.7 10 1.5-5.0 Normal (applies to non-numeric resul ts) [facility] ([facility]) Baso # 0.0 10 0.0-0.2 Normal (applies to non-numeric resul ts) [facility] ([facility]) Eos # 0.1 10 0.0-0.5 Normal (applies to non-numeric resul ts) [facility] ([facility]) ID Date Data Source [id number] 11/09/2020 12:45:00 PM EDT [facility] ([facility]) Name Value Range Interpretation Code Description Data Kerrie rce(s) Supporting Document(s) Laboratory test finding (navigational concept) Laboratory test result [facility] ([facility]) ASSAY INFORMATION: Real Time RT-PCR NOTE: The COVID-19 assay has been cleared by the U.S. Food and Drug Administration under the Emergency Use Authorization (EUA). [facility] and [employer] are designated as high complexity laboratories by the Clinical Laboratory Improvement Amendments of 1988(CLIA) and are qualified to perform this test. Not Detected ID Date Data Source [id number] 11/09/2020 12:45:00 PM EDT [facility] Name Value Range Interpretation Code Description Data Kerrie rce(s) Supporting Document(s) SARS-CoV-2 (COVID-19) RNA [Presence] in Respiratory specimen by DEBI with probe detection Not Detected [facility] This lab was ordered by [facility] and reported by [employer] ID Date Data Source [id number] 09/28/2020 02:02:00 PM EDT [facility]) Name Value Range Interpretation Code Description Data Kerrie rce(s) Supporting Document(s) aPTT in Platelet poor plasma by Coagulation assay 23.4 Sec 24.7-34.7 Below low normal [facility]) Note normal range update due to new reag ent lot 01/07/2020 Venipuncture Laboratory test result [facility] ([facility]) ID Date Data Source [id number] 09/28/2020 02:02:00 PM EDT [facility]) Name Value Range Interpretation Code Description Data Kerrie rce(s) Supporting Document(s) Prothrombin time (PT) 12.9 Sec 10.9-14.5 [facility] ( [facility]) INR in Platelet poor plasma by Coagulation assay 1.0 [facility]) * INR Interpretation : . Recommended Theraputic Range: 2.0 - 3.0 . For treatment/prophylaxis . of venous thrombosis, . prevention of embolism. . . ID Date Data Source [id number] 09/28/2020 02:02:00 PM EDT [facility] ([facility]) Name Value Range Interpretation Code Description Data Kerrie rce(s) Supporting Document(s) Choriogonadotropin.beta subunit [Moles/volume] in Seru m or Plasma Laboratory test result [facility]) HCG Interpretation: Less Than 5.0 miu/ml - Either no HCG or too low to be clinically significant. 5.0 - 25.0 miu/ml - Equivocal result. Sh ould be repeated after 48 hours. A test result less than 25.0 should be interpreted in conjunction with other laboratory data available to the physician. Greater than 25.0 miu/ml - Clinically significant. ID Date Data Source [id number] 09/28/2020 02:02:00 PM EDT [facility] ([facility]) Name Value Range Interpretation Code Description Data Kerrie rce(s) Supporting Document(s) Erythrocytes [#/volume] in Blood by Automated count 4.44 x10E6/uL 3.9 -5.4 [facility] ([facility]) Hemoglobin [Mass/volume] in Blood 13.3 g/dL 12.0-16.0 [facility] ([facility]) WBC. 5.50 x10E3/uL 4.2-12.0 [facility] ([facility]) MCH 30.0 pg 27-33 [facility] ([facility]) Hematocrit [Volume Fraction] of Blood by Automated count 39.3 % 3 6-47 [facility] ([facility]) MCV 88.6 fL 80-98 [facility] ([facility]) MCHC 33.9 g/dL 32-36 [facility] ([facility]) Platelets [#/volume] in Blood by Automated count 330 x10E3/uL 135-420 [facility] ([facility]) RDW 13.7 % 11.2-15.2 [facility] ([facility]) %Lym 35.1 % 10.0-45.2 [facility] ([facility]) % Williams 56.0 % 41.0-80.0 [facility] ([facility]) MPV 7.3 fL 7.0-12.3 [facility] ([facility]) %Baso 0.5 % 0.0-3.0 [facility] ([facility]) %[place] 7.1 % 2.0-13.0 [facility] ([facility]) Eosinophils [#/volume] in Blood by Automated count 1.3 % 0.0-8.0 [facility] ([facility]) Lymp 1.9 x10E3/uL 0.6-3.1 [facility] ([facility]) Neut 3.1 x10E3/uL 2.0-8.1 [facility]) Eos 0.1 x10E3/uL 0.0-0.6 [facility]) [place] 0.4 x10E3/uL 0.0-1.0 [facility] ([facility]) Baso 0.0 x10E3/uL 0.0-0.2 [facility] ([facility]) ID Date Data Source [id number] 09/28/2020 02:02:00 PM EDT [facility] ([facility]) Name Value Range Interpretation Code Description Data Kerrie rce(s) Supporting Document(s) Urea nitrogen [Moles/volume] in Serum or Plasma 15 mg/dL 6-20 [facility] ([facility]) Glucose [Mass/volume] in Serum or Plasma 85 mg/dL 74-106 [facility] ([facility]) [place] [employer] (ADA) Recommended Range is 65-99 mg/dL Sodium [Moles/volume] in Serum or Plasma 140 mmol/L 136-145 [facility] ([facility]) Creatinine [Mass/volume] in Serum or Plasma 0.8 mg/dL 0.5-1.3 [facility] ([facility]) Carbon dioxide, total [Moles/volume] in Serum or Plasma 26 meq/L 20 -31 [facility] ([facility]) Potassium [Moles/volume] in Serum or Plasma 4.5 mmol/L 3.5-5.3 [facility] ([facility]) Chloride [Moles/volume] in Serum or Plasma 106 mmol/L 98-107 [facility] ([facility]) eGFR-female 88 mL/m/1.73m [facility] ([facility]) Anion Gap 8 mmol/L 7-16 [facility] ([facility]) eGFR-Aa female 107 mL/m/1.73m [facility] ([facility]) <content>Normal Kidney Function or Mild Disease GFR >59 mL/min/1.73m2</content>
<content>Chronic Kidney Disease GFR 15-59 mL/min/1.73m2</content>
<content>Renal Failure GFR <15 mL/min/1.73m2</content>
<content></content> Calcium [Mass/volume] in Serum or Plasma 9.6 mg/dL 8.9-10.5 [facility] ([facility]) ID Date Data Source TSH 06/24/2020 12:00:00 AM EST eCW1 ([facility]) Name Value Range Interpretation Code Description Data Kerrie rce(s) Supporting Document(s) 0.976 0.358-3.740 THYROID STIMULATING HORM ONE eCW1 ([facility]) ID Date Data Source CBC - Complete Blood Count 06/24/2020 12:00:00 AM EST eCW1 ( [facility]) Name Value Range Interpretation Code Description Data Kerrie rce(s) Supporting Document(s) 5.9 4.0-10.0 WHITE BLOOD COUNT eCW1 ([facility]) 4.25 4.00-5.40 RED BLOOD COUNT eCW1 ([facility]) 12.4 12.0-15.5 HEMOGLOBIN eCW1 ([facility]) 37.8 36.0-47.0 HEMATOCRIT eCW1 ([facility]) 32.8 32.0-36.5 MEAN CORPUSCULAR HGB CONC eCW1 ([facility]) 12.6 11.5-14.5 RED CELL DISTRIBUTION WID TH eCW1 ([facility]) 29.2 27.0-33.0 MEAN CORPUSCULAR HEMOGLOB IN eCW1 ([facility]) 88.9 80.0-96.0 MEAN CORPUSCULAR VOLUME e CW1 ([facility]) 291 150-450 PLATELET COUNT, AUTOMATED eCW1 ([facility]) Procedure Social History Code Duration Value Status Description Data Source(s ) Smoking 03/13/2021 12:00:00 AM EDT Never Smoker completed Never S moker eCW1 ([facility]) Smoking 11/10/2020 12:00:00 AM EDT Patient has n ever smoked (pipe, cigarette, cigar) completed Patient has never smoked (pipe, cigarett e, cigar) [facility] ([facility]) Smoking 09/06/2020 12:00:00 AM EDT Never Smoker completed Never S moker eCW1 ([facility]) Smoking 09/06/2020 12:00:00 AM EDT Never Smoker completed Never S moker eCW1 ([facility]) Smoking 08/15/2020 12:00:00 AM EDT Never Smoker completed Never S moker eCW1 ([facility]) Smoking 08/09/2020 12:00:00 AM EDT Never Smoker completed Never S moker eCW1 ([facility]) Smoking 06/24/2020 12:00:00 AM EST Never Smoker completed Never S moker eCW1 ([facility]) Smoking 04/11/2020 12:00:00 AM EST Never Smoker completed Never S moker eCW1 ([facility]) Vital Signs ID Date Data Source UNK Name Value Range Interpretation Code Description Data Source(s) [facility] 101 /min 101 /[facility] Body temperature 98.4 [degF] 98.4 [degF] [facility] ([facility]) Body weight 163.00 [lb_av] 163.00 [lb_av] MEDEN T ([facility]) Body height 69 [in_i] 69 [in_i] [facility] ([facility]) 5'9" Respiratory rate 16 /min 16 /min [facility] ( [facility]) Systolic blood pressure 106 mm[Hg] 106 mm[Hg] M EDENT ([facility]) Diastolic blood pressure 72 mm[Hg] 72 mm[Hg] [facility] ([facility]) Oxygen saturation in Arterial blood by Pulse oximetry 99 % 99 % [facility] ([facility]) Body mass index (BMI) [Ratio] 24.1 kg/m2 24.1 k g/m2 [facility] ([facility]) Stout body weight 140 [lb_av] 140 [lb_av] MEDEN T ([facility], ) Respiratory rate 12 /min 12 /min MED[facility] ( [facility], ) Body height 68 [in_i] 68 [in_i] [facility] ([facility]) 5'8" Body weight 165.00 [lb_av] 165.00 [lb_av] MEDEN T ([facility]) Body mass index (BMI) [Ratio] 25.1 kg/m2 25.1 k g/m2 [facility] ([facility]) Body weight 162.00 [lb_av] 162.00 [lb_av] MEDEN T ([facility]) Respiratory rate 12 /min 12 /min [facility] ( [facility]) Body height 68 [in_i] 68 [in_i] [facility] ([facility]) 5'8" Body mass index (BMI) [Ratio] 24.6 kg/m2 24.6 k g/m2 [facility] ([facility]) Stout body weight 154 [lb_av] 154 [lb_av] MEDEN T ([facility]) Body height 68 [in_i] 68 [in_i] [facility] ([facility]) 5'8" Body weight 165.00 [lb_av] 165.00 [lb_av] MEDEN T ([facility]) Body mass index (BMI) [Ratio] 25.1 kg/m2 25.1 k g/m2 [facility] ([facility]) Systolic blood pressure 112 mm[Hg] 112 mm[Hg] M EDENT ([facility]) Diastolic blood pressure 75 mm[Hg] 75 mm[Hg] [facility] ([facility]) Heart rate 96 /min 96 /min [facility] ([facility]) Body temperature 98.6 [degF] 98.6 [degF] [facility] ([facility]) Body temperature 37.0 Linda 37.0 Linda [facility] ( [facility]) Body mass index (BMI) [Ratio] 25.6 kg/m2 25.6 k g/m2 eCW1 ([facility]) Body weight 168.4 [lb_av] 168.4 [lb_av] eCW1 ([facility]) Systolic blood pressure 106 mm[Hg] 106 mm[Hg] e CW1 ([facility]) Diastolic blood pressure 62 mm[Hg] 62 mm[Hg] eCW1 ([facility]) Body height 68 [in_i] 68 [in_i] eCW1 ([facility]) Body weight 168.4 [lb_av] 168.4 [lb_av] eCW1 ([facility]) Body weight 76.38 kg 76.38 kg eCW1 ([facility]) Body height 68 [in_i] 68 [in_i] eCW1 ([facility]) Body mass index (BMI) [Ratio] 25.6 kg/m2 25.6 k g/m2 W1 ([facility]) Systolic blood pressure 122 mm[Hg] 122 mm[Hg] e CW1 ([facility]) Diastolic blood pressure 80 mm[Hg] 80 mm[Hg] eCW1 ([facility]) Body weight 173.00 [lb_av] 173.00 [lb_av] MEDEN T ([facility], ) Respiratory rate 12 /min 12 /min MED[facility] ( [facility], ) Body height 68 [in_i] 68 [in_i] [facility] ([facility], ) 5'8" Body mass index (BMI) [Ratio] 26.3 kg/m2 26.3 k g/m2 [facility] ([facility], ) Stout body weight 154 [lb_av] 154 [lb_av] MEDEN T ([facility], ) Body weight 171.0 [lb_av] 171.0 [lb_av] eCW1 ([facility]) Body weight 77.56 kg 77.56 kg W1 ([facility]) Body height 68 [in_i] 68 [in_i] eCW1 ([facility]) Body mass index (BMI) [Ratio] 26 kg/m2 26 kg/ m2 W1 ([facility]) Systolic blood pressure 110 mm[Hg] 110 mm[Hg] e CW1 ([facility]) Diastolic blood pressure 80 mm[Hg] 80 mm[Hg] eCW1 ([facility]) Patient Treatment Plan of Care Planned Activity Planned Date Details Description Data Source (s) Sertraline 50 MG Oral Tablet [Zoloft] 08/09/2020 12:00:00 AM EDT eCW1 ([facility]) Sertraline 50 MG Oral Tablet [Zoloft] 08/09/2020 12:00:00 AM EDT eCW1 ([facility]) Sprintec 28 0.25-35 MG-MCG 06/24/2020 12:00:00 AM EST eCW1 ([facility]) Sprintec 28 0.25-35 MG-MCG 06/24/2020 12:00:00 AM EST eCW1 ([facility]) Sprintec 28 0.25-35 MG-MCG 06/24/2020 12:00:00 AM EST eCW1 ([facility]) Sprintec 28 0.25-35 MG-MCG 06/24/2020 12:00:00 AM EST eCW1 ([facility]) Sertraline 25 MG Oral Tablet [Zoloft] 06/24/2020 12:00:00 AM EST eCW1 ([facility])
--- OUTSIDE RECORDS SUMMARY | 2021-05-07 11:59 | CCD | Continuity of Care Document ---
Author Author [facility] Organization Unknown Address [address] [place] [address] [place] [address] Phone [phone] Problems Description No Information Available Social History [...] Code Status Date Vaccine Reaction Lot # [id number] Given 01/27/2014 PPD- TB Intradermal Test 11/07 PPD negative. 0mm. Lawrence JARA [id number] Vital Signs Date Vital Result Comment 03/29/2021 [...] Available Procedures Date Code Description Status 03/29/2021 [id number] Office/Outpatient Established Lo w MDM 20-29 Min [...]
[2021-05-07] MEDS ORDERED: METOCLOPRAMIDE INJ 10MG/2ML VIAL (J2765 PER 1) IV ONE (13:50)
[2021-05-07] MEDS ORDERED: KETOROLAC 30 MG/ML 1ML VIAL IV ONE (13:50)
[2021-05-07] MEDS ORDERED: NS 1,000 ML IV ONE (13:50)
[2021-05-07] MEDS ORDERED: dexameTHASONE 20MG/5ML VIAL (J1100 PER 1MG) IV ONE (13:50)
[2021-05-07] MEDS ORDERED: diphenhydrAMINE 50MG/ML VIAL (J1200) IV STA (13:50)
[2021-05-07 14:14] LABS: BASO % 0.2 % (0.0-1.0); EOS # 0.1 10^3/uL (0.0-0.5); EOS % 0.6 % (0.0-3.0); HEMATOCRIT 39.6 % (36.0-47.0); HEMOGLOBIN 13.2 g/dl (12.0-15.5); LYMPH # 0.9 10^3/uL (1.5-5.0); LYMPH % 10.4 % (24.0-44.0); MEAN CORPUSCULAR HEMOGLOBIN 29.7 pg (27.0-33.0); MEAN CORPUSCULAR HGB CONC 33.3 g/dl (32.0-36.5); MEAN CORPUSCULAR VOLUME 89.2 fl (80.0-96.0); MONO # 0.7 10^3/uL (0.0-0.8); NEUTROPHILS # 6.8 10^3/uL (1.5-8.5); NEUTROPHILS % 80.4 % (36.0-66.0); PLATELET COUNT, AUTOMATED 267 10^3/uL (150-450); RED BLOOD COUNT 4.44 10^6/uL (4.00-5.40); WHITE BLOOD COUNT 8.5 10^3/uL (4.0-10.0)
[2021-05-07] MEDS ORDERED: LIDOCAINE VISCOUS 2% SOLN 15ML UDC SS ONE (14:25)
--- OUTSIDE RECORDS SUMMARY | 2021-05-07 14:56 | CCD ---
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 Name Role Phone Fátima HUTCHISON Unavailable Unavailable [...] Checo Ledesma MD Unavailable Unavailable Padalino, Checo Ledsema MD Unavailable Unavailable Padalino, Checo Ledesma MD [...] Padalino, Checo Ledesma MD Unavailable Unavailable Padalino, hCeco Ledesma MD Unavailable Unavailable Padalino, Checo Baltazar MD Unavailable Unavailable Checo Villagran MD Unavailable Unavailable Sah, P Dipendra [...] Unavailable Unavailable Rogerio Fleming MD Unavailable Unavailable Rogeiro Fleming MD Unavailable Unavailable Rogerio Fleming MD [...] Unavailable Rogerio Fleming MD Unavailable Unavailable Rogerio Flmeing MD Unavailable Unavailable Rogerio Fleming MD Unavailable [...] Unavailable Unavailable Rogerio Fleming MD Unavailable Unavailable Lnonie, O Rah HANNAH Unavailable Unavailable Lonnie, O [...] is protected by Article 27-F of the [facility] Public Health law. If you continue you may have access to information: Regarding HIV / AIDS; Provided by facilities licensed or operated by the [facility] Office of Mental Health; or Provided by the [facility] Office for People With Developmental Disabilities. If such information is present, then the following [facility] mandated warning applies: This information has [...] law may result in a fine or group home sentence or both. A general authorization for the release of medical or other information is NOT sufficient authorization for further disc losure. Family History Family Member Name Family Member Gender Family Member Status Date o f Status Description Data Source(s) Unknown Unknown Problem [facility] ([facility]) Unknown Unknown Problem MEDENT ([facility]) Encounters Encounter Providers Location Date Indications Data Source(s ) [place] [address] [facility] [facility] [address] 03/30/2021 12:00:00 AM EDT eCW1 ([facility]) Outpatient Attender: LEIGHA Marques fred 03/29/2021 01:30:00 PM EDT MEDENT ([facility]) Outpatient Attender: Rah Fleming MD [facility] 01/24/2021 03:00:00 PM EDT MED[facility] ([facility]) Unknown [address] [facility] [address] 12/14/2020 12:00:00 AM EDT [facility]CW1 [facility] Outpatient Attender: Baltazar Villagran MDAdmitter: Baltazar nathan MD 11/14/2020 07:40:00 AM EDT - 11/14/2020 10:52:00 AM EDT CEREBRAL ANEURYSM, NONRUPTURED [facility] CEREBRAL ANEURYSM, NONRUPTURED Patient discharged. Outpatient Attender: 0000{ TANA 11/14/2020 07:40:00 AM E DT [facility] Outpatient Attender: Abram SAVAGE [facility] [place] 11/10/2020 08:20:00 AM EDT [facility] ([facility]) Outpatient Attender: Rah Fleming MD [facility] 10/12/2020 01:15:00 PM EDT MEDENT ([facility]) Outpatient Attender: Baltazar Villagran MD [facility] [place] 09/28/2020 01:00:00 PM EDT MED[facility] ([facility] ([facility] PROC) [facility] Procedure [address] [place] [address] 09/09/2020 12:00:00 AM EDT eCW1 ([facility] [place]) [place] [address] [facility] [facility] [address] 09/01/2020 12:00:00 AM EDT [facility]CW1 [facility] [place] [place] [address] [facility] [address] 08/09/2020 12:00:00 AM EDT eCW1 [facility] [place]) Outpatient Attender: Rah Fleming MD [facility] 07/01/2020 08:00:00 AM EST MEDENT ([facility]) [place] [address] [facility] [address] 06/24/2020 12:00:00 AM EST eCW1 ([facility]) [place] [address] [facility] [facility] [address] 06/10/2020 12:00:00 AM EST eCW1 ([facility]) [place] [address] [facility] [facility] [address] 03/08/2020 12:00:00 AM EDT eCW1 ([facility]) Immunizations Vaccine Date Status Description Data Source(s) COVID-19 VACC, MRNA([employer])/PF 02/27/2021 12:00:00 AM EDT completed [facility] COVID-19 VACCINE Pfizer 02/27/2021 12:00:00 AM EDT completed [facility] Vaccine Series Complete: YESThis Data wa s Submitted to [facility] Via [employer]. COVID-19 VACCINE Pfizer 01/31/2021 12:00:00 AM EDT completed [facility] Vaccine Series Complete: NOThis Data was Submitted to [facility] Via [employer]. Medications Medication Brand Name Start Date Product [...] Medications 03/29/2021 12:00:00 AM EDT completed MEDENT ([facility]) 100 mg 01/25/2021 12:00:00 [...] {tablet} active Zo loft 50 MG eCW1 ([facility]) Sertraline 50 MG Oral Tablet [Zoloft] Zoloft 50 MG Zoloft 50 MG 08/09/2020 12:00:00 AM EDT 1.0 {tablet} active Zo loft 50 MG eCW1 ([facility]) Sertraline 50 MG Oral Tablet [Zoloft] Zoloft 50 MG Zoloft 50 MG 08/09/2020 12:00:00 AM EDT 1.0 {tablet} active Zo loft 50 MG eCW1 ([facility]) Sertraline 50 MG Oral Tablet [Zoloft] Zoloft 50 MG Zoloft 50 MG 08/09/2020 12:00:00 AM EDT 1.0 {tablet} active Zo loft 50 MG eCW1 ([facility]) Sertraline 50 MG Oral Tablet [Zoloft] Zoloft 50 MG Zoloft 50 MG 08/09/2020 12:00:00 AM EDT 1.0 {tablet} active Zo loft 50 MG eCW1 ([facility]) 100 mg 07/02/2020 12:00:00 AM EST tablet [...] 07/01/2020 12:00:00 AM EST ORAL active MEDENT ([facility] ) Sertraline 25 MG Oral Tablet [Zoloft] Zoloft 25 MG Zoloft 25 MG 06/24/2020 12:00:00 AM EST 1.0 {tablet} suspended Zoloft 25 MG eCW1 ([facility]) Sprintec 28 0.25-35 MG-MCG Sprintec 28 0.25-35 MG-MCG 2020 12:00:00 AM EST 1.0 {tablet} active Sprintec 28 0.25-35 MG-MCG eCW1 ([facility]) Sprintec 28 0.25-35 MG-MCG Sprintec 28 0.25-35 MG-MCG 2020 12:00:00 AM EST 1.0 {tablet} suspended Sprintec 28 0.25-35 MG-MCG eCW1 ([facility]) Sprintec 28 0.25-35 MG-MCG Sprintec 28 0.25-35 MG-MCG 2020 12:00:00 AM EST 1.0 {tablet} suspended Sprintec 28 0.25-35 MG-MCG eCW1 ([facility]) Sprintec 28 0.25-35 MG-MCG Sprintec 28 0.25-35 MG-MCG 2020 12:00:00 AM EST 1.0 {tablet} suspended Sprintec 28 0.25-35 MG-MCG eCW1 ([facility]) Sertraline 25 MG Oral Tablet [Zoloft] Zoloft 25 MG Zoloft 25 MG 06/24/2020 12:00:00 AM EST 1.0 {tablet} active Zo loft 25 MG eCW1 ([facility]) Sprintec 28 0.25-35 MG-MCG Sprintec 28 0.25-35 MG-MCG 2020 12:00:00 AM EST 1.0 {tablet} active Sprintec 28 0.25-35 MG-MCG eCW1 ([facility]) Sertraline 25 MG Oral Tablet [Zoloft] Zoloft 25 MG Zoloft 25 MG 06/24/2020 12:00:00 AM EST 1.0 {tablet} suspended Zoloft 25 MG eCW1 ([facility]) Sprintec 28 0.25-35 MG-MCG Sprintec 28 0.25-35 MG-MCG 2020 12:00:00 AM EST 1.0 {tablet} active Sprintec 28 0.25-35 MG-MCG eCW1 ([facility]) Sertraline 25 MG Oral Tablet [Zoloft] Zoloft 25 MG Zoloft 25 MG 06/24/2020 12:00:00 AM EST 1.0 {tablet} active Zo loft 25 MG eCW1 ([facility]) Sprintec 28 0.25-35 MG-MCG Sprintec 28 0.25-35 MG-MCG 2020 12:00:00 AM EST 1.0 {tablet} suspended Sprintec 28 0.25-35 MG-MCG eCW1 ([facility]) Sprintec 28 0.25-35 MG-MCG Sprintec 28 0.25-35 MG-MCG 2020 12:00:00 AM EST 1.0 {tablet} active Sprintec 28 0.25-35 MG-MCG eCW1 ([facility]) Sertraline 25 MG Oral Tablet [Zoloft] Zoloft 25 MG Zoloft 25 MG 06/24/2020 12:00:00 AM EST 1.0 {tablet} active Zo loft 25 MG eCW1 ([facility]) Sertraline 25 MG Oral Tablet [Zoloft] Zoloft 25 MG Zoloft 25 MG 06/24/2020 12:00:00 AM EST 1.0 {tablet} suspended Zoloft 25 MG eCW1 ([facility]) Sprintec 28 0.25-35 MG-MCG Sprintec 28 0.25-35 MG-MCG 2020 12:00:00 AM EST 1.0 {tablet} suspended Sprintec 28 0.25-35 MG-MCG eCW1 ([facility]) Sprintec 28 0.25-35 MG-MCG Sprintec 28 0.25-35 MG-MCG 2020 12:00:00 AM EST 1.0 {tablet} active Sprintec 28 0.25-35 MG-MCG eCW1 ([facility]) Sprintec 28 0.25-35 MG-MCG Sprintec 28 0.25-35 MG-MCG 2020 12:00:00 AM EST 1.0 {tablet} suspended Sprintec 28 0.25-35 MG-MCG eCW1 ([facility]) Sprintec 28 0.25-35 MG-MCG Sprintec 28 0.25-35 MG-MCG 2020 12:00:00 AM EST 1.0 {tablet} active Sprintec 28 0.25-35 MG-MCG eCW1 ([facility]) [facility] 06/15 28 Day Pack 1 mg-20 mcg (21)/75 mg (7) NORETHINDRONE ACETATE- ETHINYL ESTRADIOL/FERROUS FUMARATE 05/09/2020 12:00:00 AM EST tablet 28 TAKE ONE TABLET BY MOUTH EVERY DAY TAKE ONE TABLET BY MOUTH EVERY DAY SOLD: 06/24/2020 [employer] [facility] 06/15 28 Day Pack 1 mg-20 mcg (21)/75 mg (7) NORETHINDRONE ACETATE- ETHINYL ESTRADIOL/FERROUS FUMARATE 05/09/2020 12:00:00 AM EST tablet 28 TAKE ONE TABLET BY MOUTH EVERY DAY TAKE ONE TABLET BY MOUTH EVERY DAY SOLD: 05/09/2020 [facility] 06/15 28 Day Pack 1 mg-20 mcg (21)/75 mg (7) NORETHINDRONE ACETATE- ETHINYL ESTRADIOL/FERROUS FUMARATE 04/12/2020 12:00:00 AM EST tablet 28 TAKE ONE TABLET BY MOUTH EVERY DAY TAKE ONE TABLET BY MOUTH EVERY DAY SOLD: 04/14/2020 [employer] Insurance Providers Payer name Policy type / Coverage type Policy ID Covered libertarian ID Covered libertarian's relationship to lou Policy Lou Plan Information [facility] [id number] SF2 [id number] MEDICAID [id number] SP [id number] [facility] [id number] [facility] [id number] Medicaid [facility] Healthcare S D [id number] SELF [id number] Medicaid P [id number] S [id number] [facility] [id number] SF2 [id number] [facility] [id number] PARENT [id number] BCBS EMPIRE DHEERAJ DIV [id number] BCBS EMPIRE DHEERAJ DIV [id number] [id number] [facility] [id number] [id number] JOZEF [id number] SP [id number] UMR [facility] [id number] SF2 [id number] SELF PAY O UNAVAILABLE [id number] S UNAVAILA BLE Self Pay P UNAVAILABLE S UNAVAILA BLE Umr/[facility]/[employer] Health Maintenance Organization (HMO) [id number] Family Dependent [id number] Medicaid [place] Medigap Part B [id number] Self [id number] Umr Commercial [id number] Self [id number] UMR F [id number] SELF [id number] UMR F [id number] SELF [id number] Medicaid S UNAVAILABLE S UNAVAILA BLE Managed Care - [facility] P UNAVAILABLE S UNAVAILABLE MEDICAID [id number] SP [id number] [facility] [id number] SP [id number] [facility] [id number] SP [id number] [employer] Commercial [id number] Family Dependent [id number] MEDICAID [id number] SP [id number] [employer] PPO O [id number] S [id number] MEDICAID [id number] S [id number] [employer] PPO O [id number] S [id number] [employer] Commercial [id number] Family Dependent [id number] [employer] [id number] FA2 [id number] [employer] [id number] SF2 [id number] [facility] [id number] SP [id number] [facility] Health Maintenance Organization (HMO) [id number] Self [employer] Commercial [id number] Family Dependent [employer] PPO S [id number] S [id number] [employer] BCBS P [id number] S VYB SELF PAY UNAVAILABLE UNAVAILA BLE HMO BLUE [id number] SP [id number] BCBS EMPIRE DHEERAJ DIV [id number] P UNAVAILABLE UNAVAILA BLE UMR [facility] [id number] SF2 [id number] [facility] [id number] [id number] BCBS EMPIRE DHEERAJ DIV [id number] [id number] EXCELLUS BLUE CROSS BLUE SHIELD HEA [id number] SO [id number] UMR HEA [id number] ST [id number] EXCELLUS BLUE CROSS BLUE SHIELD HEA [id number] SO [id number] [facility] [id number] SP [id number] UMR [facility] [id number] SP [id number] BCBS EMPIRE DHEERAJ DIV [id number] Problems, Conditions, and Diagnoses Code Display Name Description Problem Type Effective Dates Data Source(s) 062158 Occipital headache Occipital headache Problem 12:00:00 AM EST MEDENT ([facility] ) [id number] Migraine Migraine Problem 07/01/2020 12:00:00 AM ES T MEDENT ([facility] ) Surgeries/Procedures Procedure Description Date Indications Data Source(s) OFFICE OUTPATIENT VISIT 15 MINUTES 03/29/2021 12:00:00 AM EDT MEDENT ([facility]) OFFICE OUTPATIENT VISIT 25 MINUTES 01/24/2021 12:00:00 AM EDT MEDENT ([facility] ) Angiography Internal Corotid Of The Ipsil Intrac Circulation 11/14/2020 12:00:00 AM EDT MEDENT ([facility]) 3D RENDER W/INTERP CT/MRI/US/OTH EBONIE W/POSTPROC 11/14 12:00:00 AM [facility] Moderate Sedation Services; Same Phys Intl 15 Mins; PT >= 5 Years 11/14/2020 12:00:00 AM EDT MEDENT ([facility] OFFICE OUTPATIENT VISIT 25 MINUTES 11/10/2020 12:00:00 AM EDT MEDENT ([facility]) OFFICE OUTPATIENT VISIT 25 MINUTES 10/12/2020 12:00:00 AM EDT MEDENT ([facility] ) OFFICE OUTPATIENT NEW 45 MINUTES 09/28/2020 12:00:00 A M EDT [facility] ELECTROENCEPHALOGRAM W/REC AWAKE&ASLEEP 09/22/2020 12: 00:00 AM EDT MEDENT ([facility] ) ELECTROENCEPHALOGRAM W/REC AWAKE&ASLEEP 09/22/2020 12: 00:00 AM EDT MEDENT ([facility] ) URINE TEST 09/09/2020 12:00:00 AM EDT eC ([facility]) Medication: Mirena 52 mg (Levonorgestrel -releasing intrauterine contraceptive system) 09/09/2020 12:00:00 AM EDT eC ([facility]) Magnetic Resonance Angiogtaphy Head W/O Contrast Material(S) 07/26/2020 12:00:00 AM EST MEDENT ([facility] ) Magnetic Resonance Angiogtaphy Head W/O Contrast Material(S) 07/26/2020 12:00:00 AM EST MED[facility] ([facility] ) MRI BRAIN BRAIN STEM W/O CONTRAST MATERIAL 07/26/2020 12:00:00 AM EST MEDENT ([facility] ) MRI BRAIN BRAIN STEM W/O CONTRAST MATERIAL 07/26/2020 12:00:00 AM EST MEDENT ([facility] ) TSTG ANS FUNCJ CARDIOVAGAL INNERVAJ PARASYMP 12:00:00 AM EST MEDENT ([facility] ) TESTING AUTONOMIC NERVOUS SYSTEM FUNCTION 07/20/2020 1 2:00:00 AM EST MEDENT ([facility]) Results ID Date Data Source [id number] 05/02/2021 12:58:00 PM EST [facility] Name Value Range Interpretation Code Description Data Kerrie rce(s) Supporting Document(s) SARS coronavirus 2 RNA [Presence] in Res piratory specimen by DEBI with probe detection POSITIVE [facility] This lab was ordered by [facility] a nd reported by [facility]. ID Date Data Source [facility] 03/30/2021 12:00:00 AM EDT eCW1 ([facility]) Name Value Range Interpretation Code Description Data Kerrie rce(s) Supporting Document(s) [facility] eCW1 ([facility]) ID Date Data Source [id number] 03/29/2021 03:29:00 PM EDT [facility] Name Value Range Interpretation Code Description Data Kerrie rce(s) Supporting Document(s) SARS-CoV-2 (COVID 19) NEGATIVE - SARS-CoV-2 (COVID19) [facility] This lab was ordered by [facility] a nd reported by [facility]. ID Date Data Source [id number] 03/29/2021 03:29:00 PM EDT MEDENT ([facility]) Name Value Range Interpretation Code Description Data Kerrie rce(s) Supporting Document(s) Respiratory Panel Laboratory test result [facility] ([facility]) This respiratory PCR panel detects Influ bart [...] - SARS-CoV-2 (COVID19) ID Date Data Source [id number] 03/29/2021 12:00:00 AM EDT [facility] Name Value Range Interpretation Code Description Data Kerrie rce(s) Supporting Document(s) SARS-CoV2 Rapid Antigen Negative [facility] This lab was ordered by [facility] and reported by [facility]. 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 Diagnostic cerebral angiogram: - Left CCA cervical (2D); Left ICA cerebral (2D/3D); Right femoral runoff (2D)2. Conscious sedation for 10 minutes3. Right femoral 5F Mynx Ditcher Operator closure device placed for arteriotomy closure Surgeon: [...] comparing the signed consent with the name state mental health facility to confirm the proper medical record number, date of , and patient name and when this was confirmed the patient was placed on the [employer] biplane angio table in supine position. The [...] the modified Seldinger technique with a 5 Singaporean micropuncture kit. I then placed a 5 Singaporean sheath into the right femoral artery without any complications or difficulties. I then placed the 4 Singaporean angled glide catheter over a glide wire [...] site. I then placed a 5F Mynx Ditcher Operator closure device in the right femoral arteriotomy [...] this plan.End of diagnostic report for accession: [id number] Interpreted: Baltazar Villagran MDTranscribed: 11/14/2020 09:43 AMSigned: 11/14/2020 09:56 AM Baltazar Villagran MD [facility] ACC # [id number] BILL # [id number] NIRR Name Value Range Interpretation Code Description Data Kerrie rce(s) Supporting Document(s) ID Date Data Source [id number] 11/10/2020 10:45:00 AM EDT [facility] Name Value Range Interpretation Code Description Data Kerrie rce(s) Supporting Document(s) Glucose, Fasting 98 mg/dL 70-100 Normal (applies to non-numeric results) [facility] ([facility]) Blood Urea Nitrogen 13 mg/dL 7-18 Normal (applies to non-nume swapnil results) [facility]) Sodium Level 137 meq/L 136-145 Normal (applies to non-numeric res ults) [facility]) Glomerular Filtration Rate Laboratory test result Normal (applies to non- numeric results) [facility]) <content>Units are mL/min/1.73 m2</content>
<content></content>
<content>Chronic Kidney Disease Staging per NKF:</content>
<content></content>
<content>Stage I & II GFR >=60 Normal to Mildly Decreased</content>
<content>Stage III GFR 30- 59 Moderately Decreased</content>
<content>Stage IV GFR 15-29 Severely Decreased</content>
<content>Stage V GFR <15 Very Little GFR Left</content>
<content>ESRD GFR <15 on GRAIN PICKER</content>
<content></content> Creatinine For GFR 0.73 mg/dL 0.55-1.30 Normal (applies to non -numeric results) [facility] ([facility]) Potassium Serum 4.7 meq/L 3.5-5.1 Normal (applies to non-numeric results) [facility] ([facility]) Carbon Dioxide Level 27 meq/L 21-32 Normal (applies to non-num chris results) [facility]) Chloride Level 106 meq/L 98-107 Normal (applies to non-numeric r esults) [facility] ([facility]) Calcium Level 9.9 mg/dL 8.5-10.1 Normal (applies to non-numeric re sults) [facility] ([facility]) Anion Gap 4 meq/L 8-16 Below low normal [facility] ([facility]) ID Date Data Source [id number] 11/10/2020 10:45:00 AM EDT [facility] ([facility]) Name Value Range Interpretation Code Description Data Kerrie rce(s) Supporting Document(s) aPTT in Platelet poor plasma by Coagulation assay 26.3 s 24.2-38.5 Normal (applies to non-numeric results) [facility] ([facility]) ID Date Data Source [id number] 11/10/2020 10:45:00 AM EDT [facility]) Name Value Range Interpretation Code Description Data Kerrie rce(s) Supporting Document(s) Prothrombin Time 12.9 s 12.5-14.3 Normal (applies to non-numeric results) [facility] ([facility]) Inr 0.95 Normal (applies to non-numeric resul ts) [facility]) THERAPUTIC HUMAN INR VALUES INDICATIONS NORMAL RANGES PROPHYLAXIS/TREATMENT OF: VENOUS THROMBOSIS 2.0-3.0 PULMONARY EMBOLISM 2.0-3.0 PREVENTION OF SYSTEMIC EMBOLISM FROM: TISSUE HEART VALVES 2.0-3.0 ACUTE MYOCARDIAL INFARCTION 2.0-3.0 VALVULAR HEART DISEASE 2.0-3.0 ATRIAL FIBRILLATION 2.0-3.0 MECHANICAL VALVES(HIGH RISK) 2.5-3.5 RECURRENT MYOCARDIAL INFARCTION 2.5-3.5 ID Date Data Source [id number] 11/10/2020 10:45:00 AM EDT [facility] ([facility]) Name Value Range Interpretation Code Description Data Kerrie rce(s) Supporting Document(s) Red Blood Count 4.59 10 4.00-5.40 Normal (applies to non-numeric results) [facility]) White Blood Count 6.3 10 4.0-10.0 Normal (applies to non-numeri c results) [facility]) Mean Corpuscular Volume 91.1 fl 80.0-96.0 Normal ( applies to non-numeric results) [facility] ([facility]) Hemoglobin 13.4 g/dL 12.0-15.5 Normal (applies to non-numeric resul ts) [facility]) Hematocrit 41.8 % 36.0-47.0 Normal (applies to non-numeric resul ts) [facility]) Mean Corpuscular Hemoglobin 29.2 pg 27.0-33.0 Norm al (applies to non-numeric results) [facility] ([facility]) Mean Corpuscular HGB Conc 32.1 g/dL 32.0-36.5 Normal (applies to non-numeric results) [facility] ([facility]) Red Cell Distribution Width 12.5 % 11.5-14.5 Norm al (applies to non-numeric results) [facility] ([facility]) Platelet Count, Automated 290 10 150-450 Normal (applies to non-numeric results) [facility] ([facility]) Neutrophils % 62.5 % 36.0-66.0 Normal (applies to non-numeric re sults) [facility] ([facility]) Eos % 1.1 % 0.0-3.0 Normal (applies to non-numeric resul ts) [facility] ([facility]) Knox % 8.6 % 2.0-8.0 Above high normal [facility] Lymph % 27.1 % 24.0-44.0 Normal (applies to non-numeric resul ts) [facility] ([facility]) Immature Granulocyte % 0.2 % 0-3.0 Normal (applies to non-n umeric results) [facility] ([facility]) Nucleated Red Blood Cell % 0.0 % 0-0 Normal (applies to n on-numeric results) [facility] ([facility]) Baso % 0.5 % 0.0-1.0 Normal (applies to non-numeric resul ts) [facility] ([facility]) Knox # 0.5 10 0.0-0.8 Normal (applies to non-numeric resul ts) [facility] ([facility]) Neutrophils # 4.0 10 1.5-8.5 Normal (applies to non-numeric re sults) [facility] ([facility]) Lymph # 1.7 10 1.5-5.0 Normal (applies to non-numeric resul ts) [facility] ([facility]) Baso # 0.0 10 0.0-0.2 Normal (applies to non-numeric resul ts) [facility] ([facility]) Eos # 0.1 10 0.0-0.5 Normal (applies to non-numeric resul ts) [facility] ([facility]) ID Date Data Source [id number] 11/09/2020 12:45:00 PM EDT [facility]) Name Value Range Interpretation Code Description Data Kerrie rce(s) Supporting Document(s) Laboratory test finding (navigational concept) Laboratory test result [facility] ([facility]) ASSAY INFORMATION: Real Time RT-PCR NOTE: The COVID-19 assay has been cleared by the U.S. Food and Drug Administration under the Emergency Use Authorization (EUA). [employer] and [employer] are designated as high complexity laboratories by the Clinical Laboratory Improvement Amendments of 1988(CLIA) and are qualified to perform this test. Not Detected ID Date Data Source [id number] 11/09/2020 12:45:00 PM EDT [facility] Name Value Range Interpretation Code Description Data Kerrie rce(s) Supporting Document(s) SARS-CoV-2 (COVID-19) RNA [Presence] in Respiratory specimen by DEBI with probe detection Not Detected [facility] This lab was ordered by [facility] and reported by [employer] ID Date Data Source [id number] 09/28/2020 02:02:00 PM EDT [facility] Name Value Range Interpretation Code Description Data Kerrie rce(s) Supporting Document(s) aPTT in Platelet poor plasma by Coagulation assay 23.4 Sec 24.7-34.7 Below low normal [facility] ([facility] Note normal range update due to new reag ent lot 01/07/2020 Venipuncture Laboratory test result MED[facility] NT ([facility]) ID Date Data Source [id number] 09/28/2020 02:02:00 PM EDT [facility]) Name Value Range Interpretation Code Description Data Kerrie rce(s) Supporting Document(s) Prothrombin time (PT) 12.9 Sec 10.9-14.5 [facility] ( [facility]) INR in Platelet poor plasma by Coagulation assay 1.0 [facility]) * INR Interpretation : . Recommended Theraputic Range: 2.0 - 3.0 . For treatment/prophylaxis . of venous thrombosis, . prevention of embolism. . . ID Date Data Source [id number] 09/28/2020 02:02:00 PM EDT [facility] ([facility]) Name Value Range Interpretation Code Description Data Kerrie rce(s) Supporting Document(s) Choriogonadotropin.beta subunit [Moles/volume] in Seru m or Plasma Laboratory test result [facility] ([facility]) HCG Interpretation: Less Than [...] - Clinically significant. ID Date Data Source [id number] 09/28/2020 02:02:00 PM EDT [facility] ([facility]) Name Value Range Interpretation Code Description Data Kerrie rce(s) Supporting Document(s) Erythrocytes [#/volume] in Blood by Automated count 4.44 x10E6/uL 3.9 -5.4 [facility] ([facility]) Hemoglobin [Mass/volume] in Blood 13.3 g/dL 12.0-16.0 [facility] ([facility]) WBC. 5.50 x10E3/uL 4.2-12.0 [facility] ([facility]) MCH 30.0 pg 27-33 [facility] ([facility]) Hematocrit [Volume Fraction] of Blood by Automated count 39.3 % 3 6-47 [facility] ([facility]) MCV 88.6 fL 80-98 [facility] ([facility]) MCHC 33.9 g/dL 32-36 [facility] ([facility]) Platelets [#/volume] in Blood by Automated count 330 x10E3/uL 135-420 [facility] ([facility]) RDW 13.7 % 11.2-15.2 [facility] ([facility]) %Lym 35.1 % 10.0-45.2 [facility] ([facility]) % Williams 56.0 % 41.0-80.0 [facility] ([facility]) MPV 7.3 fL 7.0-12.3 [facility] ([facility]) %Baso 0.5 % 0.0-3.0 [facility] ([facility]) %Knox 7.1 % 2.0-13.0 [facility] ([facility]) Eosinophils [#/volume] in Blood by Automated count 1.3 % 0.0-8.0 [facility] ([facility]) Lymp 1.9 x10E3/uL 0.6-3.1 [facility] ([facility]) Neut 3.1 x10E3/uL 2.0-8.1 [facility] ([facility]) Eos 0.1 x10E3/uL 0.0-0.6 [facility]) Knox 0.4 x10E3/uL 0.0-1.0 [facility] ([facility]) Baso 0.0 x10E3/uL 0.0-0.2 [facility] ([facility]) ID Date Data Source [id number] 09/28/2020 02:02:00 PM EDT [facility] ([facility]) Name Value Range Interpretation Code Description Data Kerrie rce(s) Supporting Document(s) Urea nitrogen [Moles/volume] in Serum or Plasma 15 mg/dL 6-20 [facility] ([facility]) Glucose [Mass/volume] in Serum or Plasma 85 mg/dL 74-106 [facility] ([facility]) [place] [employer] (ADA) Recommended Range is 65-99 mg/dL Sodium [Moles/volume] in Serum or Plasma 140 mmol/L 136-145 [facility] ([facility]) Creatinine [Mass/volume] in Serum or Plasma 0.8 mg/dL 0.5-1.3 [facility] ([facility]) Carbon dioxide, total [Moles/volume] in Serum or Plasma 26 meq/L 20 -31 [facility] ([facility]) Potassium [Moles/volume] in Serum or Plasma 4.5 mmol/L 3.5-5.3 [facility] ([facility]) Chloride [Moles/volume] in Serum or Plasma 106 mmol/L 98-107 [facility] ([facility]) eGFR-female 88 mL/m/1.73m [facility] ([facility]) Anion Gap 8 mmol/L 7-16 [facility] ([facility]) eGFR-Aa female 107 mL/m/1.73m [facility] ([facility]) <content>Normal Kidney Function or Mild Disease GFR >59 mL/min/1.73m2</content>
<content>Chronic Kidney Disease GFR 15-59 mL/min/1.73m2</content>
<content>Renal Failure GFR <15 mL/min/1.73m2</content>
<content></content> Calcium [Mass/volume] in Serum or Plasma 9.6 mg/dL 8.9-10.5 [facility] ([facility]) ID Date Data Source TSH 06/24/2020 12:00:00 AM EST eCW1 ([facility]) Name Value Range Interpretation Code Description Data Kerrie rce(s) Supporting Document(s) 0.976 0.358-3.740 THYROID STIMULATING HORM ONE eCW1 ([facility]) ID Date Data Source CBC - Complete Blood Count 06/24/2020 12:00:00 AM EST eCW1 ( [facility]) Name Value Range Interpretation Code Description Data Kerrie rce(s) Supporting Document(s) 5.9 4.0-10.0 WHITE BLOOD COUNT eCW1 ([facility]) 4.25 4.00-5.40 RED BLOOD COUNT eCW1 ([facility]) 12.4 12.0-15.5 HEMOGLOBIN eCW1 ([facility]) 37.8 36.0-47.0 HEMATOCRIT eCW1 ([facility]) 32.8 32.0-36.5 MEAN CORPUSCULAR HGB CONC eCW1 ([facility]) 12.6 11.5-14.5 RED CELL DISTRIBUTION WID TH eCW1 ([facility]) 29.2 27.0-33.0 MEAN CORPUSCULAR HEMOGLOB IN eCW1 ([facility]) 88.9 80.0-96.0 MEAN CORPUSCULAR VOLUME e CW1 ([facility]) 291 150-450 PLATELET COUNT, AUTOMATED eCW1 ([facility]) Procedure Social History Code Duration Value Status Description Data Source(s ) Smoking 03/13/2021 12:00:00 AM EDT Never Smoker completed Never S moker eCW1 ([facility]) Smoking 11/10/2020 12:00:00 AM EDT Patient has n ever smoked (pipe, cigarette, cigar) completed Patient has never smoked (pipe, cigarett e, cigar) [facility] ([facility]) Smoking 09/06/2020 12:00:00 AM EDT Never Smoker completed Never S moker eCW1 ([facility]) Smoking 09/06/2020 12:00:00 AM EDT Never Smoker completed Never S moker eCW1 ([facility]) Smoking 08/15/2020 12:00:00 AM EDT Never Smoker completed Never S moker eCW1 ([facility]) Smoking 08/09/2020 12:00:00 AM EDT Never Smoker completed Never S moker eCW1 ([facility]) Smoking 06/24/2020 12:00:00 AM EST Never Smoker completed Never S moker eCW1 ([facility]) Smoking 04/11/2020 12:00:00 AM EST Never Smoker completed Never S moker eCW1 ([facility]) Vital Signs ID Date Data Source UNK Name Value Range Interpretation Code Description Data Source(s) Systolic blood pressure 106 mm[Hg] 106 mm[Hg] M [facility] ([facility]) Heart rate 101 /min 101 /min [facility] Body temperature 98.4 [degF] 98.4 [degF] [facility] ([facility]) Body weight 163.00 [lb_av] 163.00 [lb_av] [facility] T ([facility]) Body height 69 [in_i] 69 [in_i] [facility] 5'9" Diastolic blood pressure 72 mm[Hg] 72 mm[Hg] [facility]) Oxygen saturation in Arterial blood by Pulse oximetry 99 % 99 % [facility] ([facility]) Respiratory rate 16 /min 16 /min [facility] ( [facility]) Body mass index (BMI) [Ratio] 24.1 kg/m2 24.1 k g/m2 [facility] ([facility]) [place] body weight 140 [lb_av] 140 [lb_av] [facility] T ([facility], ) Respiratory rate 12 /min 12 /min [facility] ( [facility], ) Body height 68 [in_i] 68 [in_i] [facility] ([facility], ) 5'8" Body weight 165.00 [lb_av] 165.00 [lb_av] [facility] T ([facility]) Body mass index (BMI) [Ratio] 25.1 kg/m2 25.1 k g/m2 [facility] ([facility], ) Respiratory rate 12 /min 12 /min [facility] ( [facility]) Body weight 162.00 [lb_av] 162.00 [lb_av] [facility] T ([facility]) Body height 68 [in_i] 68 [in_i] [facility] ([facility]) 5'8" Body mass index (BMI) [Ratio] 24.6 kg/m2 24.6 k g/m2 [facility] ([facility], ) [place] body weight 154 [lb_av] 154 [lb_av] [facility] T ([facility]) Body height 68 [in_i] 68 [in_i] [facility] ([facility]) 5'8" Body weight 165.00 [lb_av] 165.00 [lb_av] [facility] T ([facility]) Body mass index (BMI) [Ratio] 25.1 kg/m2 25.1 k g/m2 [facility] ([facility]) Systolic blood pressure 112 mm[Hg] 112 mm[Hg] M [facility] ([facility]) Diastolic blood pressure 75 mm[Hg] 75 mm[Hg] [facility] ([facility]) Heart rate 96 /min 96 /min [facility] ([facility]) Body temperature 98.6 [degF] 98.6 [degF] [facility] ([facility]) Body temperature 37.0 Linda 37.0 Linda [facility] ( [facility]) Body weight 168.4 [lb_av] 168.4 [lb_av] eCW1 ([facility]) Body height 68 [in_i] 68 [in_i] eCW1 ([facility]) Body mass index (BMI) [Ratio] 25.6 kg/m2 25.6 k g/m2 eCW1 ([facility]) Systolic blood pressure 106 mm[Hg] 106 mm[Hg] e CW1 ([facility]) Diastolic blood pressure 62 mm[Hg] 62 mm[Hg] eCW1 ([facility]) Body weight 168.4 [lb_av] 168.4 [lb_av] eCW1 ([facility]) Body weight 76.38 kg 76.38 kg eCW1 ([facility]) Body height 68 [in_i] 68 [in_i] W1 ([facility]) Body mass index (BMI) [Ratio] 25.6 kg/m2 25.6 k g/m2 W1 ([facility]) Systolic blood pressure 122 mm[Hg] 122 mm[Hg] e CW1 ([facility]) Diastolic blood pressure 80 mm[Hg] 80 mm[Hg] eCW1 ([facility]) Body weight 173.00 [lb_av] 173.00 [lb_av] MED[facility] T ([facility], ) Respiratory rate 12 /min 12 /min [facility] ( [facility], ) Body height 68 [in_i] 68 [in_i] [facility] ([facility], ) 5'8" Body mass index (BMI) [Ratio] 26.3 kg/m2 26.3 k g/m2 [facility] ([facility], ) [place] body weight 154 [lb_av] 154 [lb_av] MED[facility] T ([facility], ) Body weight 171.0 [lb_av] 171.0 [lb_av] eCW1 ([facility]) Body weight 77.56 kg 77.56 kg W1 ([facility]) Body height 68 [in_i] 68 [in_i] W1 ([facility]) Body mass index (BMI) [Ratio] 26 kg/m2 26 kg/ m2 W1 ([facility]) Systolic blood pressure 110 mm[Hg] 110 mm[Hg] e CW1 ([facility]) Diastolic blood pressure 80 mm[Hg] 80 mm[Hg] eCW1 ([facility]) Patient Treatment Plan of Care Planned Activity Planned Date Details Description Data Source (s) Sertraline 50 MG Oral Tablet [Zoloft] 08/09/2020 12:00:00 AM EDT eCW1 ([facility]) Sertraline 50 MG Oral Tablet [Zoloft] 08/09/2020 12:00:00 AM EDT eCW1 ([facility]) Sprintec 28 0.25-35 MG-MCG 06/24/2020 12:00:00 AM EST eCW1 ([facility]) Sprintec 28 0.25-35 MG-MCG 06/24/2020 12:00:00 AM EST eCW1 ([facility]) Sprintec 28 0.25-35 MG-MCG 06/24/2020 12:00:00 AM EST eCW1 ([facility]) Sprintec 28 0.25-35 MG-MCG 06/24/2020 12:00:00 AM EST eCW1 ([facility]) Sertraline 25 MG Oral Tablet [Zoloft] 06/24/2020 12:00:00 AM EST eCW1 ([facility])
[2021-05-07] MEDS ORDERED: REGL10TA6 PO (15:59)
[2021-05-07] MEDS ORDERED: IBUP-1022 PO (15:59)
[2021-05-07 16:23] VITALS: BP 103/62
== END 2021-05-07 16:27 | disposition home or self-care (01) ==
LOC: M ED 11:52
DX: U07.1 COVID-19 (principal); R51.9 Headache, unspecified; M54.2 Cervicalgia; R59.0 Localized enlarged lymph nodes
CPT/HCPCS: 36415; 80047; 84702; 85025; 96361; 96374; 96375; 99284; J1100; J1200; J1885; J2765

== ENCOUNTER → 2021-11-10 | Outpatient (CLI) | payer OTHER, BC ==
[~2021-11-10] MED LIST changes: +IBUP-1022 PO; +REGL10TA6 PO
[2021-11-10 09:37] LABS: BASO # 0.1 10^3/uL (0.0-0.2); BASO % 0.7 % (0.0-1.0); EOS # 0.1 10^3/uL (0.0-0.5); EOS % 1.4 % (0.0-3.0); HEMATOCRIT 34.9 % (36.0-47.0); HEMOGLOBIN 11.6 g/dl (12.0-15.5); LYMPH % 28.1 % (24.0-44.0); MEAN CORPUSCULAR HEMOGLOBIN 29.9 pg (27.0-33.0); MEAN CORPUSCULAR HGB CONC 33.2 g/dl (32.0-36.5); MEAN CORPUSCULAR VOLUME 89.9 fl (80.0-96.0); MONO # 0.6 10^3/uL (0.0-0.8); MONO % 8.7 % (2.0-8.0); NEUTROPHILS # 4.3 10^3/uL (1.5-8.5); NEUTROPHILS % 60.8 % (36.0-66.0); PLATELET COUNT, AUTOMATED 271 10^3/uL (150-450); RED BLOOD COUNT 3.88 10^6/uL (4.00-5.40)
[2021-11-10 10:04] LABS: ALBUMIN 3.4 GM/DL (3.2-5.2); ALT/SGPT 20 U/L (12-78); BILIRUBIN,TOTAL 0.5 MG/DL (0.2-1.0); BLOOD UREA NITROGEN 11 MG/DL (7-18); CALCIUM LEVEL 8.6 MG/DL (8.5-10.1); CARBON DIOXIDE LEVEL 27 MEQ/L (21-32); CHLORIDE LEVEL 109 MEQ/L (98-107); CREATININE FOR GFR 0.72 MG/DL (0.55-1.30); FREE T4 0.92 NG/DL (0.76-1.46); GLOMERULAR FILTRATION RATE > 60.0 (>60); GLUCOSE, FASTING 98 MG/DL (70-100); IRON (FE) 70 UG/DL (50-170); PERCENT SATURATION 16.3 % (13.2-45.0); POTASSIUM SERUM 4.3 MEQ/L (3.5-5.1); SODIUM LEVEL 140 MEQ/L (136-145); TOTAL IRON BINDING CAPACITY 430 UG/DL (250-450); TOTAL PROTEIN 6.9 GM/DL (6.4-8.2)
== END ==
LOC: M RAD 08:42
PROVIDERS: ATTEND Physician Assistant
DX: M79.672 Pain in left foot (principal); F41.1 Generalized anxiety disorder; Z86.2 Personal history of diseases of the blood and blood-forming organs and certain disorders involving the immune mechanism

== ENCOUNTER → 2022-04-09 | Outpatient (REF) | payer OTHER ==
[2022-04-09 17:55] LABS: BASO % 0.4 % (0.0-1.0); EOS # 0.1 10^3/uL (0.0-0.5); EOS % 1.6 % (0.0-3.0); HEMATOCRIT 37.5 % (36.0-47.0); HEMOGLOBIN 12.4 g/dl (12.0-15.5); LYMPH # 2.1 10^3/uL (1.5-5.0); LYMPH % 31.1 % (24.0-44.0); MEAN CORPUSCULAR HEMOGLOBIN 29.2 pg (27.0-33.0); MEAN CORPUSCULAR HGB CONC 33.1 g/dl (32.0-36.5); MEAN CORPUSCULAR VOLUME 88.4 fl (80.0-96.0); MONO # 0.7 10^3/uL (0.0-0.8); MONO % 9.9 % (2.0-8.0); NEUTROPHILS # 3.8 10^3/uL (1.5-8.5); NEUTROPHILS % 56.7 % (36.0-66.0); PLATELET COUNT, AUTOMATED 290 10^3/uL (150-450); RED BLOOD COUNT 4.24 10^6/uL (4.00-5.40); WHITE BLOOD COUNT 6.8 10^3/uL (4.0-10.0)
[2022-04-09 18:26] LABS: ALBUMIN 3.8 GM/DL (3.2-5.2); ALT/SGPT 25 U/L (12-78); BILIRUBIN,TOTAL 0.7 MG/DL (0.2-1.0); BLOOD UREA NITROGEN 11 MG/DL (7-18); CALCIUM LEVEL 8.9 MG/DL (8.5-10.1); CARBON DIOXIDE LEVEL 27 MEQ/L (21-32); CHLORIDE LEVEL 106 MEQ/L (98-107); CREATININE FOR GFR 0.71 MG/DL (0.55-1.30); FERRITIN 33 NG/ML (8-252); FREE T4 0.92 NG/DL (0.76-1.46); GLOMERULAR FILTRATION RATE > 60.0 (>60); GLUCOSE, FASTING 92 MG/DL (70-100); IRON (FE) 54 UG/DL (50-170); POTASSIUM SERUM 4.7 MEQ/L (3.5-5.1); SODIUM LEVEL 137 MEQ/L (136-145); THYROID STIMULATING HORMONE 0.794 uIU/ML (0.358-3.740); TOTAL IRON BINDING CAPACITY 415 UG/DL (250-450); TOTAL PROTEIN 7.1 GM/DL (6.4-8.2)
== END ==
LOC: M SFHCADAM 15:14
PROVIDERS: ATTEND Physician Assistant
DX: G43.709 Chronic migraine without aura, not intractable, without status migrainosus (principal); J30.89 Other allergic rhinitis; J45.909 Unspecified asthma, uncomplicated; R53.82 Chronic fatigue, unspecified; Z86.2 Personal history of diseases of the blood and blood-forming organs and certain disorders involving the immune mechanism

== ENCOUNTER → 2022-05-31 | Outpatient (CLI) | payer OTHER, BC | LOC: M RAD 09:19 | PROVIDERS: ATTEND Advanced Practice Midwife | DX: N92.1 Excessive and frequent menstruation with irregular cycle (principal) ==

== ENCOUNTER → 2022-08-01 | Outpatient (CLI) | payer OTHER, BC | LOC: M WHC 10:58 | PROVIDERS: ATTEND Advanced Practice Midwife | DX: R10.2 Pelvic and perineal pain (principal) ==

== ENCOUNTER 2022-09-30 21:07 | Emergency (ER) | payer BC, OTHER ==
[~2022-09-30] VITALS: Ht 172.7 cm; Wt 78.0 kg
[2022-09-30] MEDS ORDERED: ALLE24TA7 PO (21:14)
[2022-09-30] MEDS ORDERED: ZOLO50TA PO (21:14)
[2022-10-01] MEDS ORDERED: IBUPROFEN 600MG TAB PO ONE (00:05)
[2022-10-01] MEDS ORDERED: methocarbamoL 500 MG TAB PO ONE (00:05)
[2022-10-01] MEDS ORDERED: IBUP-1022 PO (01:15)
[2022-10-01] MEDS ORDERED: METH-1164 PO (01:15)
[2022-10-01 01:29] VITALS: BP 131/73
== END 2022-10-01 01:33 | disposition home or self-care (01) ==
LOC: M ED 21:07
DX: S50.01XA Contusion of right elbow, initial encounter (principal); W10.8XXA Fall (on) (from) other stairs and steps, initial encounter; Z79.52 Long term (current) use of systemic steroids; Z79.891 Long term (current) use of opiate analgesic; Z79.899 Other long term (current) drug therapy; Y92.009 Unspecified place in unspecified non-institutional (private) residence as the place of occurrence of the external cause

== ENCOUNTER → 2023-02-14 | Outpatient (REF) | payer OTHER ==
[~2023-02-14] MED LIST changes: +ALLE24TA7 PO; +METH-1164 PO; +ZOLO50TA PO
[2023-02-14 16:48] LABS: GC DNA AMPLIFICATION NEGATIVE (NEGATIVE)
== END ==
LOC: M PLALAB 09:39
PROVIDERS: ATTEND Advanced Practice Midwife
DX: Z11.3 Encounter for screening for infections with a predominantly sexual mode of transmission (principal)

== ENCOUNTER → 2023-12-06 | Outpatient (CLI) | payer OTHER ==
[2023-12-06 17:38] LABS: HEMATOCRIT 39.7 % (36.0-47.0); HEMOGLOBIN 13.5 g/dl (12.0-15.5); MEAN CORPUSCULAR HEMOGLOBIN 30.5 pg (27.0-33.0); MEAN CORPUSCULAR VOLUME 89.6 fl (80.0-96.0); PLATELET COUNT, AUTOMATED 295 10^3/uL (150-450); RED BLOOD COUNT 4.43 10^6/uL (4.00-5.40); WHITE BLOOD COUNT 6.3 10^3/uL (4.0-10.0)
[2023-12-06 18:08] LABS: FREE T4 0.97 NG/DL (0.89-1.76); THYROID STIMULATING HORMONE 1.15 uIU/ML (0.55-4.78)
== END ==
LOC: M PLALAB 15:40
PROVIDERS: ATTEND Advanced Practice Midwife
DX: D64.9 Anemia, unspecified (principal); R63.5 Abnormal weight gain

== ENCOUNTER → 2023-12-06 | Outpatient (CLI) | payer OTHER | LOC: M WHC 14:39 | PROVIDERS: ATTEND Advanced Practice Midwife | DX: N85.4 Malposition of uterus (principal); R10.2 Pelvic and perineal pain; Z97.5 Presence of (intrauterine) contraceptive device ==

== ENCOUNTER → 2024-01-08 | Outpatient (REF) | payer OTHER ==
[2024-01-08 14:34] LABS: Trichomonas vaginalis (AMP) NOT DETECTED (NEGATIVE)
[2024-01-08 14:58] LABS: GC DNA AMPLIFICATION NEGATIVE (NEGATIVE)
== END ==
LOC: M PLALAB 08:07
PROVIDERS: ATTEND Advanced Practice Midwife
DX: Z12.4 Encounter for screening for malignant neoplasm of cervix (principal); Z11.3 Encounter for screening for infections with a predominantly sexual mode of transmission

== ENCOUNTER → 2024-06-15 | Outpatient (REF) | payer OTHER ==
[2024-06-15 19:41] LABS: HCG, SERUM QUALITATIVE NEGATIVE (NEGATIVE)
== END ==
LOC: M LAB REF 19:32
PROVIDERS: ATTEND Advanced Practice Midwife
DX: N92.6 Irregular menstruation, unspecified (principal)

== ENCOUNTER → 2024-11-26 | Outpatient (CLI) | payer OTHER ==
[~2024-11-26] MED LIST changes: -IBUP-1022 PO; +IBUP600T42 PO
[2024-11-26 17:23] LABS: PLATELET COUNT, AUTOMATED 293 10^3/uL (150-450)
[2024-11-26 18:26] LABS: HIV 1&2 SCREEN NEGATIVE (NEGATIVE)
[2024-11-26 18:34] LABS: HEPATITIS C VIRUS ABY INDEX 0.03 INDEX (<0.8)
[2024-11-26 18:49] LABS: Trichomonas vaginalis (AMP) NOT DETECTED (NEGATIVE)
[2024-11-26 19:12] LABS: GC DNA AMPLIFICATION NEGATIVE (NEGATIVE)
== END ==
LOC: M PLALAB 15:22
PROVIDERS: ATTEND Advanced Practice Midwife
DX: Z34.81 Encounter for supervision of other normal pregnancy, first trimester (principal); Z3A.11 11 weeks gestation of pregnancy

== ENCOUNTER → 2025-01-18 | Outpatient (CLI) | payer OTHER | LOC: M WHC 10:02 | PROVIDERS: ATTEND Advanced Practice Midwife | DX: Z34.80 Encounter for supervision of other normal pregnancy, unspecified trimester (principal) ==

== ENCOUNTER → 2025-02-17 | Outpatient (CLI) | payer OTHER | LOC: M WHC 13:45 | PROVIDERS: ATTEND Advanced Practice Midwife | DX: Z34.82 Encounter for supervision of other normal pregnancy, second trimester (principal); Z3A.23 23 weeks gestation of pregnancy ==

== ENCOUNTER → 2025-03-18 | Outpatient (CLI) | payer OTHER ==
[2025-03-18 13:51] LABS: PLATELET COUNT, AUTOMATED 250 10^3/uL (150-450)
[2025-03-18 14:23] LABS: GLUCOSE CHALLENGE TEST 1 HOUR 111 MG/DL (LESS THAN 140)
[2025-03-18 14:54] LABS: HIV 1&2 SCREEN NEGATIVE (NEGATIVE)
[2025-03-18 15:02] LABS: HEPATITIS C VIRUS ABY INDEX < 0.02 INDEX (<0.8)
[2025-03-18 15:19] LABS: Trichomonas vaginalis (AMP) NOT DETECTED (NEGATIVE)
[2025-03-18 15:43] LABS: GC DNA AMPLIFICATION NEGATIVE (NEGATIVE)
== END ==
LOC: M PLALAB 10:37
PROVIDERS: ATTEND Advanced Practice Midwife
DX: Z34.80 Encounter for supervision of other normal pregnancy, unspecified trimester (principal)

== ENCOUNTER → 2025-04-01 | Outpatient (CLI) | payer OTHER ==
[2025-04-01 13:46] LABS: IRON (FE) 78.0 UG/DL (50-170)
[2025-04-01 13:48] LABS: FREE T4 0.82 NG/DL (0.89-1.76)
== END ==
LOC: M PLALAB 11:40
PROVIDERS: ATTEND Advanced Practice Midwife
DX: O99.013 Anemia complicating pregnancy, third trimester (principal); D64.9 Anemia, unspecified; Z3A.00 Weeks of gestation of pregnancy not specified

== ENCOUNTER → 2025-05-13 | Outpatient (REF) | payer OTHER | LOC: M SFHCWAGY 10:45 | PROVIDERS: ATTEND Advanced Practice Midwife | DX: Z34.83 Encounter for supervision of other normal pregnancy, third trimester (principal); Z36.85 Encounter for antenatal screening for Streptococcus B ==